=== PATIENT | male | born 1945 | race Caucasian/White ===

== ENCOUNTER 2018-03-03 08:55 | Outpatient (RCR) | payer MEDICARE, OTHER ==
[2018-01-27 15:58] LABS: BASOPHILS # (AUTO) 0.1 10^3/uL (0.0-0.1); BASOPHILS % (AUTO) 2 % (0-10); EOSINOPHILS # (AUTO) 0.1 10^3/uL (0.0-0.3); EOSINOPHILS % (AUTO) 1 % (0-10); HEMATOCRIT 55 % (40-54); LYMPHOCYTES % (AUTO) 17 % (12-44); MEAN CORPUSCULAR HEMOGLOBIN 28 PG (25-34); MEAN CORPUSCULAR HGB CONC 33 G/DL (32-36); MEAN CORPUSCULAR VOLUME 86 FL (80-99); MEAN PLATELET VOLUME 10.6 FL (7.4-10.4); MONOCYTES # (AUTO) 0.5 X 10^3 (0.0-1.0); MONOCYTES % (AUTO) 8 % (0-12); NEUTROPHILS # (AUTO) 4.3 X 10^3 (1.8-7.8); NEUTROPHILS % (AUTO) 73 % (42-75); PLATELET COUNT 173 10^3/uL (130-400); RED BLOOD COUNT 6.48 10^6/uL (4.35-5.85); RED CELL DISTRIBUTION WIDTH 15.2 % (10.0-14.5); WHITE BLOOD COUNT 5.9 10^3/uL (4.3-11.0)
[2018-02-17 13:14] LABS: BASOPHILS # (AUTO) 0.1 10^3/uL (0.0-0.1); BASOPHILS % (AUTO) 1 % (0-10); EOSINOPHILS # (AUTO) 0.1 10^3/uL (0.0-0.3); EOSINOPHILS % (AUTO) 1 % (0-10); HEMATOCRIT 55 % (40-54); HEMOGLOBIN 18.3 G/DL (13.3-17.7); LYMPHOCYTES # (AUTO) 1.3 X 10^3 (1.0-4.0); LYMPHOCYTES % (AUTO) 18 % (12-44); MEAN CORPUSCULAR HEMOGLOBIN 28 PG (25-34); MEAN CORPUSCULAR HGB CONC 33 G/DL (32-36); MEAN CORPUSCULAR VOLUME 85 FL (80-99); MEAN PLATELET VOLUME 10.1 FL (7.4-10.4); MONOCYTES # (AUTO) 0.7 X 10^3 (0.0-1.0); MONOCYTES % (AUTO) 9 % (0-12); NEUTROPHILS # (AUTO) 5.2 X 10^3 (1.8-7.8); NEUTROPHILS % (AUTO) 71 % (42-75); PLATELET COUNT 258 10^3/uL (130-400); RED BLOOD COUNT 6.46 10^6/uL (4.35-5.85); RED CELL DISTRIBUTION WIDTH 14.5 % (10.0-14.5); WHITE BLOOD COUNT 7.3 10^3/uL (4.3-11.0)
[~2018-03-03 08:55] MED LIST: ALLP100T PO; BISO1TAB6 PO; CEPH500C PO; CHOL400T43 GT; FERR27TA PO; HYDR-1231 PO; LISI10TA PO
[2018-03-22 10:32] LABS: BASOPHILS # (AUTO) 0.1 10^3/uL (0.0-0.1); BASOPHILS % (AUTO) 1 % (0-10); EOSINOPHILS % (AUTO) 1 % (0-10); HEMATOCRIT 49 % (40-54); HEMOGLOBIN 16.3 G/DL (13.3-17.7); LYMPHOCYTES % (AUTO) 20 % (12-44); MEAN CORPUSCULAR HEMOGLOBIN 28 PG (25-34); MEAN CORPUSCULAR HGB CONC 33 G/DL (32-36); MEAN CORPUSCULAR VOLUME 85 FL (80-99); MEAN PLATELET VOLUME 9.4 FL (7.4-10.4); MONOCYTES # (AUTO) 0.4 X 10^3 (0.0-1.0); MONOCYTES % (AUTO) 9 % (0-12); NEUTROPHILS # (AUTO) 3.3 X 10^3 (1.8-7.8); NEUTROPHILS % (AUTO) 69 % (42-75); PLATELET COUNT 201 10^3/uL (130-400); RED BLOOD COUNT 5.73 10^6/uL (4.35-5.85); RED CELL DISTRIBUTION WIDTH 16.6 % (10.0-14.5); WHITE BLOOD COUNT 4.8 10^3/uL (4.3-11.0)
[2018-03-22 10:53] LABS: ALBUMIN 4.4 GM/DL (3.2-4.5); CALCIUM 9.8 MG/DL (8.5-10.1); CREATININE SERUM 1.37 MG/DL (0.60-1.30); POTASSIUM 4.4 MMOL/L (3.6-5.0); TOTAL PROTEIN 7.2 GM/DL (6.4-8.2)
== END 2018-03-22 10:22 | disposition home or self-care (01) ==
LOC: ONC 08:55
PROVIDERS: ATTEND Internal Medicine Hematology & Oncology
DX: D75.1 Secondary polycythemia (principal); I10 Essential (primary) hypertension; Q61.3 Polycystic kidney, unspecified; M19.91 Primary osteoarthritis, unspecified site; Z79.899 Other long term (current) drug therapy
CPT/HCPCS: 36415; 80053; 81206; 81270; 82668; 85025; 99195; 99214

== ENCOUNTER 2018-04-03 19:29 | Emergency (ER) | payer MEDICARE, OTHER ==
[~2018-04-03] VITALS: Ht 180.3 cm; Wt 97.5 kg
[2018-04-03 20:05] LABS: BASOPHILS % (AUTO) 1 % (0-10); EOSINOPHILS % (AUTO) 0 % (0-10); HEMATOCRIT 39 % (40-54); HEMOGLOBIN 13.8 G/DL (13.3-17.7); LYMPHOCYTES # (AUTO) 0.4 X 10^3 (1.0-4.0); LYMPHOCYTES % (AUTO) 9 % (12-44); MEAN CORPUSCULAR HEMOGLOBIN 29 PG (25-34); MEAN CORPUSCULAR HGB CONC 35 G/DL (32-36); MEAN CORPUSCULAR VOLUME 84 FL (80-99); MEAN PLATELET VOLUME 9.1 FL (7.4-10.4); MONOCYTES # (AUTO) 0.6 X 10^3 (0.0-1.0); MONOCYTES % (AUTO) 11 % (0-12); NEUTROPHILS % (AUTO) 79 % (42-75); PLATELET COUNT 182 10^3/uL (130-400); RED BLOOD COUNT 4.72 10^6/uL (4.35-5.85); RED CELL DISTRIBUTION WIDTH 17.1 % (10.0-14.5)
--- NOTE | 2018-04-03 20:07 | ED Lower Extremity ---
General Stated Complaint: CHILLS,FEVER,RASH,ACHY Source: patient, family () Exam Limitations: no limitations History of Present Illness Date Seen by Provider: Apr 03, 2018 Time Seen by Provider: 19:50 Initial Comments Patient is a 72-year-old male who presents to the emergency room with complaints of fever, body aches, rash to his bilateral shins, inflamed and swollen right great toe that all started this morning upon waking. He reports that he has history of polycythemia vera and gout. Onset: this morning Pain/Injury Location: right 1st toe Method of Injury: unknown Modifying Factors: Worse With Movement Allergies and Home Medications Allergies Coded Allergies: No Known Drug Allergies (Unverified , 11/29/12) Home Medications Allopurinol 100 Mg Tab, 100 MG PO BIDPC, (Reported) Cephalexin 500 Mg Capsule, 500 MG PO TID Prescribed by: JAC CLARK on 04/03/182103 Cephalexin Monohydrate 500 Mg Capsule, 1 EACH PO TID Prescribed by: NAHOMI GREGORIO on 09/05/142216 Ferrous Sulfate 27 Mg Tablet, 27 MG PO DAILY, (Reported) Hydrocodone Bit/Acetaminophen 1 Tab Tablet, 1 TAB PO Q4H PRN for PAIN Prescribed by: NAHOMI GREGORIO on 09/05/142216 Lisinopril 10 Mg Tablet, 10 MG PO DAILY, (Reported) Patient Home Medication List Home Medication List Reviewed: Yes Review of Systems Constitutional: see HPI, chills, fever, malaise Musculoskeletal: see HPI, joint pain (right great toe pain) Skin: see HPI, rash (to both shins ) All Other Systems Reviewed Negative Unless Noted: Yes Past Yxkacqt-Lvngzw-Deimij Hx Past Med/Social Hx: Reviewed Nursing Past Med/Soc Hx Patient Social History Recent Foreign Travel: No Contact w/Someone Who Travel: No Immunizations Up To Date Tetanus Booster (TDap): Unknown Past Medical History Hypertension Polycystic Kidney Disease Family Medical History Reviewed Nursing Family Hx No Pertinent Family Hx Physical Exam Vital Signs Vital Signs - First Documented 04/03/18 19:48 Temp 101.0 Pulse 85 Resp 18 B/P (MAP) 141/79 (99) Pulse Ox 95 Capillary Refill : Height, Weight, BMI Height: 5'11.00" Weight: 219lbs. 0.0oz. 99.570491qu; BMI Method:Stated General Appearance: WD/WN, no apparent distress HEENT: PERRL/EOMI, normal ENT inspection, TMs normal, pharynx normal Neck: non-tender, full range of motion, supple, normal inspection Cardiovascular: normal peripheral pulses, regular rate, rhythm, no edema, no gallop, no JVD, no murmur Respiratory: chest non-tender, lungs clear, normal breath sounds, no respiratory distress, no accessory muscle use Feet: right foot infection, right foot limited range of motion, right foot soft tissue tenderness, right foot swelling, right foot other (to right great toe. Conserns for cellulits to the toe) Neurologic/Psychiatric: alert, normal mood/affect, oriented x 3 Skin: normal color, warm/dry Progress/Results/Core Measures Results/Orders Lab Results Laboratory Tests Test 04/03/18 19:55 Range/Units White Blood Count 5.0 4.3-11.0 10^3/uL Red Blood Count 4.72 4.35-5.85 10^6/uL Hemoglobin 13.8 13.3-17.7 G/DL Hematocrit 39 L 40-54 % Mean Corpuscular Volume 84 80-99 FL Mean Corpuscular Hemoglobin 29 25-34 PG Mean Corpuscular Hemoglobin Concent 35 32-36 G/DL Red Cell Distribution Width 17.1 H 10.0-14.5 % Platelet Count 182 130-400 10^3/uL Mean Platelet Volume 9.1 7.4-10.4 FL Neutrophils (%) (Auto) 79 H 42-75 % Lymphocytes (%) (Auto) 9 L 12-44 % Monocytes (%) (Auto) 11 0-12 % Eosinophils (%) (Auto) 0 0-10 % Basophils (%) (Auto) 1 0-10 % Neutrophils # (Auto) 4.0 1.8-7.8 X 10^3 Lymphocytes # (Auto) 0.4 L 1.0-4.0 X 10^3 Monocytes # (Auto) 0.6 0.0-1.0 X 10^3 Eosinophils # (Auto) 0.0 0.0-0.3 10^3/uL Basophils # (Auto) 0.0 0.0-0.1 10^3/uL Erythrocyte Sedimentation Rate 17 0-30 MM/HR Prothrombin Time 16.2 H 12.2-14.7 SEC INR Comment 1.3 0.8-1.4 Activated Partial Thromboplast Time 38 H 24-35 SEC Sodium Level 138 135-145 MMOL/L Potassium Level 3.8 3.6-5.0 MMOL/L Chloride Level 105 98-107 MMOL/L Carbon Dioxide Level 22 21-32 MMOL/L Anion Gap 11 5-14 MMOL/L Blood Urea Nitrogen 17 7-18 MG/DL Creatinine 1.42 H 0.60-1.30 MG/DL Estimat Glomerular Filtration Rate 49 BUN/Creatinine Ratio 12 Glucose Level 122 H 70-105 MG/DL Lactic Acid Level 0.94 0.50-2.00 MMOL/L Uric Acid 5.0 2.6-7.2 MG/DL Calcium Level 9.3 8.5-10.1 MG/DL Corrected Calcium 9.4 8.5-10.1 MG/DL Total Bilirubin 0.8 0.1-1.0 MG/DL Aspartate Amino Transf (AST/SGOT) 22 5-34 U/L Alanine Aminotransferase (ALT/SGPT) 19 0-55 U/L Alkaline Phosphatase 61 40-136 U/L C-Reactive Protein High Sensitivity 8.43 H 0.00-0.50 MG/DL Total Protein 6.8 6.4-8.2 GM/DL Albumin 3.9 3.2-4.5 GM/DL Micro Results Microbiology 04/03/18 Influenza Types A,B Antigen (NAVYA) - Final, Complete My Orders Orders - JAC CLARK Influenza A And B Antigens (04/03/18 19:47) Erythrocyte Sedimentation Rate (04/03/18 19:54) Hs C Reactive Protein (04/03/18 19:54) Uric Acid (04/03/18 19:54) Cbc With Automated Diff (04/03/18 19:54) Comprehensive Metabolic Panel (04/03/18 19:54) Blood Culture (04/03/18 19:54) Protime With Inr (04/03/18 19:54) Partial Thromboplastin Time (04/03/18 19:54) Saline Lock/Iv-Start (04/03/18 19:54) Vital Signs Adult Sepsis Patie Q15M (04/03/18 19:54) O2 (04/03/18 19:54) Remove Rings In Anticipation O (04/03/18 19:54) Lactic Acid Analyzer (04/03/18 19:54) Foot, Right, 3 View (04/03/18 19:56) Acetaminophen Tablet (Tylenol Tablet) (04/03/18 21:00) Ceftriaxone For Iv Use (Rocephin For I (04/03/18 21:00) Colchicine Tablet (Colcrys Tablet) (04/03/18 21:15) Colchicine Tablet (Colcrys Tablet) (04/03/18 21:45) Medications Given in ED Current Medications Medications Dose Ordered Sig/Mendez Route Start Time Stop Time Status Last Admin Dose Admin Acetaminophen 1,000 mg ONCE ONCE PO 04/03/18 21:00 04/03/18 21:01 DC 04/03/18 21:10 1,000 MG Ceftriaxone Sodium 1000 mg/ Sodium Chloride 50 ml @ 100 mls/hr ONCE ONCE IV 04/03/18 21:00 04/03/18 21:29 DC 04/03/18 21:13 100 MLS/HR Colchicine 0.6 mg ONCE ONCE PO 04/03/18 21:15 04/03/18 21:16 DC 04/03/18 21:36 0.6 MG Colchicine 0.6 mg ONCE ONCE PO 04/03/18 21:45 04/03/18 21:46 DC 04/03/18 22:10 0.6 MG Vital Signs/I&O 04/03/18 04/03/18 19:48 22:11 Temp 101.0 99.0 Pulse 85 74 Resp 18 18 B/P (MAP) 141/79 (99) 144/68 (93) Pulse Ox 95 98 Progress Progress Note : Time: 21:00 Progress Note I have seen and evaluated the patient. Given his lab values and history I will be treating for cellulitis and gout flare up. I have discussed the case with Dr. Canales and he agrees. The patient agrees with plan of care, plans for follow up, return precautions were given. Voiced no concerns or questions. Diagnostic Imaging Diagonstic Imaging: Xray Plain Films/CT/US/NM/MRI: other (foot) Comments NAME: ANUJACHIDIZENAIDA REC#: [id number] PHYSICIAN: JAC CLARK CC: JAC CLARK; TOMASZ ULLOA MD Page 1 of 1 RADIOLOGY REPORT [facility]IA [email or web address]. [place], [place] CC: JAC CLARK; TOMASZ ULLOA MD Page 1 of 1 RADIOLOGY REPORT NAME: ZENAIDA ASTUDILLO [facility] REC#: [id number] PT STATUS: REG ER : 1945 PHYSICIAN: JAC CLARK ADMIT DATE: 04/03/18/ER Signed Date of Exam: 04/03/18 FOOT, RIGHT, 3 VIEW INDICATION: Redness and swelling of the right great toe 3 views of the right foot shows no fracture, dislocation or other acute bony abnormality. There is advanced degenerative change of the metatarsophalangeal joint and the interphalangeal joint of the great toe. There is hypertrophic spurring and joint space narrowing at these levels. There is small subchondral cyst. No soft tissue calcifications or erosions are seen to specifically suggest gout. There is no evidence of osteomyelitis. IMPRESSION: There are degenerative changes present with no acute abnormality seen. Dictated by: Dictated on workstation # [id number] Dict: 04/03/182032 Trans: 04/03/182049 Interpreted by: TOMASZ ULLOA MD Electronically signed by: TOMASZ ULLOA MD 04/03/182049 Reviewed: Reviewed by Me Departure Impression Primary Impression: Cellulitis of great toe, right Additional Impression: Gout attack Disposition: 01 HOME, SELF-CARE Condition: Stable/Unchanged Departure-Patient Inst. Decision time for Depature: 21:01 Referrals: ORTIZ VALDEZ MD (PCP) Primary Care Physician Patient Instructions: Cellulitis (Skin Infection), Adult (DC) Add. Discharge Instructions: Take medications as directed. Tylenol as directed by the bottle for pain and fever. Follow-up with Dr. Valdez within 1 week for recheck. Call first thing tomorrow morning for an appointment time. Return back to the emergency room for any worsening symptoms or concerns as needed. Scripts Cephalexin (Keflex) 500 Mg Capsule 500 MG PO TID for 7 Days, #21 CAP Prov: JAC CLARK 04/03/18 Copy Copies To 1: ORTIZ VALDEZ MD, TRAVIS Apr 03, 2018 20:07
[2018-04-03 20:17] LABS: INR 1.3 (0.8-1.4); PROTHROMBIN TIME PATIENT 16.2 SEC (12.2-14.7)
[2018-04-03 20:24] LABS: ALBUMIN 3.9 GM/DL (3.2-4.5); BILIRUBIN,TOTAL 0.8 MG/DL (0.1-1.0); CALCIUM 9.3 MG/DL (8.5-10.1); CREATININE SERUM 1.42 MG/DL (0.60-1.30); ERYTHROCYTE SEDIMENTATION RATE 17 MM/HR (0-30); POTASSIUM 3.8 MMOL/L (3.6-5.0); TOTAL PROTEIN 6.8 GM/DL (6.4-8.2)
--- NOTE | 2018-04-03 20:37 | Diagnostic Imaging Report ---
INDICATION: Redness and swelling of the right great toe 3 views of the right foot shows no fracture, dislocation or other acute bony abnormality. There is advanced degenerative change of the metatarsophalangeal joint and the interphalangeal joint of the great toe. There is hypertrophic spurring and joint space narrowing at these levels. There is small subchondral cyst. No soft tissue calcifications or erosions are seen to specifically suggest gout. There is no evidence of osteomyelitis. IMPRESSION: There are degenerative changes present with no acute abnormality seen. Dictated by: Dictated on workstation # [id number]
[2018-04-03] MEDS ORDERED: ACETAMINOPHEN 500 MG TAB (TYLENOL) PO ONE (21:00)
[2018-04-03] MEDS ORDERED: cefTRIAXone FOR IV USE 1,000 MG in NS (IVPB) 50 ML IV ONE (21:00)
[2018-04-03] MEDS ORDERED: CEPH-507 PO (21:04)
[2018-04-03] MEDS ORDERED: COLCHICINE 0.6 MG (COLCRYS) TABLET PO ONE ×2 (21:15→21:45)
[2018-04-03 22:11] VITALS: BP 144/68
--- OUTSIDE RECORDS SUMMARY | 2018-04-03 22:41 | XMS REPORT | Encounter Summary ---
Author Author [facility] Organization [facility] Address Unknown Phone Unavailable Care Team Providers Care Corporate Planning Manager Name Role Phone [employer] DRILLING AND PRODUCTION SUPERINTENDENT- Unavailable Bi Stevens MD Unavailable Marc Valdez MD PCP Reason for Visit * Reason Comments Medication Refill Encounter Details Date Type Department Care Team Description 03/10/[address] [facility] Bi Stevens MD Physicians - Internal [address] [facility] [place] [address] [place] [address] Pav[address] Level 4C [phone] [address] [place] [address] Social History Tobacco Use Types Packs/Day Years Used Date Never Smoker Smokeless Tobacco: Never Used Sex Assigned at Date Recorded Not on file as of this encounter Plan of Treatment Not on fileas of this encounter Visit Diagnoses Not on filein this encounter
--- OUTSIDE RECORDS SUMMARY | 2018-04-03 22:41 | XMS REPORT | Clinical Summary ---
Author Author [facility] Organization [facility] Address Unknown Phone Unavailable Care Team Providers Care Ad Setter Name Role Phone [employer] PEDIATRICIAN MANAGING PARTNER- Unavailable Bi Stevens MD Unavailable Marc Valdez MD PCP Source Comments Some departments are not documenting in the electronic medical record. If you do not see the information that you expected, contact Release of Information in the Health Information Management department at [phone] for further assistance in locating additional records.[facility] Allergies No Known Allergies Current Medications Prescription Sig. Disp. Refills Start End Date Status Date cholecalciferol (Vitamin Take 1,000 Units by mouth Active D3) (VITAMIN D-3) 1,000 daily. units tablet bisoprolol/hydrochlorothi Take 10 mg by mouth Active azide (ZIAC) 10/6.25 mg daily. tablet 10 mg ferrous sulfate (IRON) Take 325 mg by mouth Active 325 mg (65 mg iron) daily. Time release tablet lisinopril (PRINIVIL; Take 1 tablet by mouth 90 tablet 3 09/08/19 Active ZESTRIL) 10 mg tablet daily. 18 sildenafil (REVATIO) 20 Take 40 mg by mouth as Active mg tablet Needed. allopurinol (ZYLOPRIM) Take 2 tablets by mouth 20 tablet 0 10/25/19 Active 100 mg tablet daily. Take with food. 18 ZIAC 10-6.25 mg tablet TAKE 1 TABLET EVERY 90 tablet 4 03/10/20 Active MORNING 18 Active Problems Problem Noted Date Polycystic kidney, unspecified type 10/17/2014 Encounters Date Type Specialty Care Team Description 03/10/2018 Refill Nephrology Bi Stevens MD from Last 3 Months Social History Tobacco Use Types Packs/Day Years Used Date Never Smoker Smokeless Tobacco: Never Used Sex Assigned at Date Recorded Not on file Last Filed Vital Signs Vital Sign Reading Time Taken Blood Pressure 115/69 10/13/2017 3:08 PM CDT Pulse 63 10/13/2017 3:08 PM CDT Temperature 36.5 C (97.7 F) 10/13/2017 3:07 PM CDT Respiratory Rate 16 10/13/2017 3:07 PM CDT Oxygen Saturation - - Inhaled Oxygen - - Concentration Weight 98.2 kg (216 lb 9.6 oz) 10/13/2017 3:07 PM CDT Height 180.3 cm (5' 11") 10/13/2017 3:07 PM CDT Body Mass Index 30.21 10/13/2017 3:07 PM CDT Plan of Treatment Health Maintenance Due Date Last Done Comments HEPATITIS C SCREENING 1945 PHYSICAL (COMPREHENSIVE) 1954 EXAM PERTUSSIS VACCINE 1958 TETANUS VACCINE 1964 COLORECTAL CANCER 1997 SCREENING SHINGLES RECOMBINANT 1997 VACCINE (1 of 2) PNEUMONIA (PCV13/PPSV23) 2012 VACCINES (1 of 2 - PCV13) INFLUENZA VACCINE 01/18/2018 Results Not on filefrom Last 3 Months
--- OUTSIDE RECORDS SUMMARY | 2018-04-03 22:42 | XMS REPORT | Continuity of Care Document ---
Author Author [facility] Organization [facility] Address Unknown Phone Unavailable Allergies Active Description Code Type Severity Reaction Onset Reported/Identified Relationship to Patient Clinical Status Yes No Known Drug Allergies [id number] Drug Allergy Unknown N/A 11/29/2012 Medications There is no data. 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 02/27/2013 MARTIN KOWALSKI, RAZ Cunha Ot 280.9 IRON DEFIC ANEMIA NOS 02/27/2013 MARTIN KOWALSKI, RAZ Cunha Ot 585.3 CHRONIC KIDNEY DISEASE, STAGE III (MODER 02/21/2014 MARTIN KOWALSKI, RAZ Cunha Ot 272.0 PURE HYPERCHOLESTEROLEM 02/21/2014 MARTIN KOWALSKI, RAZ Cunha Ot 401.9 HYPERTENSION NOS 03/26/2014 ORTIZ BARRON MD Ot 211.3 BENIGN NEOPLASM LG BOWEL 03/26/2014 ORTIZ BARRON MD Ot 562.10 DIVERTICULOSIS COLON (W/O MENT OF HEMORR 03/26/2014 ORTIZ BARRON MD Ot V16.0 FAMILY HX-GI MALIGNANCY 03/26/2014 ORTIZ BARRON MD Ot V76.51 SCREEN MAL NEOP-COLON 05/24/2014 MARTIN KOWALSKI, RAZ Cunha Ot 719.45 05/24/2014 RAZ SALAZAR MD Ot 719.46 05/24/2014 RAZ SALAZAR MD Ot 729.5 05/24/2014 RAZ SALAZAR MD Ot 573.8 05/24/2014 RAZ SALAZAR MD Ot 724.02 05/24/2014 RAZ SALAZAR MD Ot 733.20 05/24/2014 MARTIN KOWALSKI, RAZ Cunha Ot 753.12 05/24/2014 Ot 280.9 05/24/2014 Ot 585.3 09/05/2014 Ot 882.0 OPEN WOUND OF HAND 09/05/2014 Ot E000.8 OTHER EXTERNAL CAUSE STATUS 09/05/2014 Ot E849.0 ACCIDENT IN HOME 09/05/2014 Ot E888.0 FALL STRIKING SHARP OBJECT 09/05/2014 Ot E920.8 ACC-CUTTING INSTRUM NEC 09/05/2014 Ot V06.1 DIPHTHERIA- TETANUS-PERTUSSIS, COMBINED [ 12/27/2014 MARTIN KOWALSKI, RAZ Cunha Ot 280.9 01/22/2015 MARTIN KOWALSKI, RAZ Cunha Ot 280.9 05/29/2015 MARTIN KOWALSKI, RAZ Cunha Ot 719.45 05/29/2015 MARTIN KOWALSKI, RAZ Cunha Ot 719.46 05/29/2015 MARTIN KOWALSKI, RAZ Cunha Ot 729.5 05/29/2015 MARTIN KOWALSKI, RAZ Cunha Ot 573.8 05/29/2015 MARTIN KOWALSKI, RAZ Cunha Ot 724.02 05/29/2015 MARTIN KOWALSKI, RAZ Cunha Ot 733.20 05/29/2015 MARTIN KOWALSKI, RAZ Cunha Ot 753.12 05/29/2015 Ot 280.9 05/29/2015 Ot 585.3 05/29/2015 Ot 272.0 05/29/2015 Ot 401.9 05/29/2015 BEATRICE KOWALSKI, ORTIZ Juan Ot V72.84 05/29/2015 MARTIN KOWALSKI, RAZ Cunha Ot 280.9 06/05/2015 MARTIN KOWALSKI, RAZ Cunha Ot D50.9 06/05/2015 RAZ SALAZAR MD Ot D63.8 06/05/2015 MARTIN KOWALSKI, RAZ Cunha Ot D50.9 06/05/2015 RAZ SALAZAR MD Ot D63.8 06/12/2015 RAZ SALAZAR MD Ot D50.9 06/12/2015 MARTIN KOWALSKI, RAZ Cunha Ot D63.8 07/18/2015 RAZ SALAZAR MD Ot D50.9 07/18/2015 RAZ SALAZAR MD Ot D63.8 08/13/2015 RAZ SALAZAR MD Ot D50.9 08/13/2015 RAZ SALAZAR MD Ot D63.8 08/27/2015 RAZ SALAZAR MD Ot D50.9 IRON DEFICIENCY ANEMIA, UNSPECIFIED 08/27/2015 RAZ SALAZAR MD Ot D63.8 ANEMIA IN OTHER CHRONIC DISEASES CLASSIF 11/18/2015 MARTIN KOWALSKI, RAZ Cunha Ot 719.45 JOINT PAIN-PELVIS 11/18/2015 RAZ SALAZAR MD Ot 719.46 JOINT PAIN-L/LEG 11/18/2015 RAZ SALAZAR MD Ot 729.5 PAIN IN LIMB 11/18/2015 MARTIN KOWALSKI, RAZ Cunha Ot 573.8 LIVER DISORDERS NEC 11/18/2015 MARTIN KOWALSKI, RAZ Cunha Ot 724.02 SPINAL STENOSIS, LUMBAR REG, W/OUT NEURO 11/18/2015 MARTIN KOWALSKI, RAZ Cunha Ot 733.20 CYST OF BONE NOS 11/18/2015 MARTIN KOWALSKI, RAZ Cunha Ot 753.12 POLYCYSTIC KIDNEY, UNSPECIFIED TYPE 11/18/2015 Ot 280.9 IRON DEFIC ANEMIA NOS 11/18/2015 Ot 585.3 CHRONIC KIDNEY DISEASE, STAGE III (MODER 01/13/2018 RAZ SALAZAR MD Ot 719.45 JOINT PAIN-PELVIS 01/13/2018 RAZ SALAZAR MD Ot 719.46 JOINT PAIN-L/LEG 01/13/2018 MARTIN KOWALSKI, RAZ Cunha Ot 729.5 PAIN IN LIMB 01/13/2018 RAZ SALAZAR MD Ot 573.8 LIVER DISORDERS NEC 01/13/2018 MARTIN KOWALSKI, RAZ Cunha Ot 724.02 SPINAL STENOSIS, LUMBAR REG, W/OUT NEURO 01/13/2018 MARTIN KOWALSKI, RAZ Cunha Ot 733.20 CYST OF BONE NOS 01/13/2018 MARTIN KOWALSKI, RAZ Cunha Ot 753.12 POLYCYSTIC KIDNEY, UNSPECIFIED TYPE 01/13/2018 Ot 280.9 IRON DEFIC ANEMIA NOS 01/13/2018 Ot 585.3 CHRONIC KIDNEY DISEASE, STAGE III (MODER 01/13/2018 Ot 272.0 PURE HYPERCHOLESTEROLEM 01/13/2018 Ot 401.9 HYPERTENSION NOS 01/13/2018 BEATRICE KOWALSKI, ORTIZ Juan Ot V72.84 EXAM PRE-OPERATIVE NOS 01/13/2018 RAZ SALAZAR MD Ot 280.9 IRON DEFIC ANEMIA NOS 01/13/2018 MARTIN KOWALSKI, RAZ Cunha Ot D50.9 IRON DEFICIENCY ANEMIA, UNSPECIFIED 01/13/2018 RAZ SALAZAR MD Ot D63.8 ANEMIA IN OTHER CHRONIC DISEASES CLASSIF 02/17/2018 RAZ SALAZAR MD Ot 719.45 JOINT PAIN-PELVIS 02/17/2018 RAZ SALAZAR MD Ot 719.46 JOINT PAIN-L/LEG 02/17/2018 MARTIN KOWALSKI, RAZ Cunha Ot 729.5 PAIN IN LIMB 02/17/2018 MARTIN KOWALSKI, RAZ Cunha Ot 573.8 LIVER DISORDERS NEC 02/17/2018 MARTIN KOWALSKI, RAZ Cunha Ot 724.02 SPINAL STENOSIS, LUMBAR REG, W/OUT NEURO 02/17/2018 MARTIN KOWALSKI, RAZ Cunha Ot 733.20 CYST OF BONE NOS 02/17/2018 MARTIN KOWALSKI, RAZ Cunha Ot 753.12 POLYCYSTIC KIDNEY, UNSPECIFIED TYPE 02/17/2018 Ot 280.9 IRON DEFIC ANEMIA NOS 02/17/2018 Ot 585.3 CHRONIC KIDNEY DISEASE, STAGE III (MODER 02/17/2018 Ot 272.0 PURE HYPERCHOLESTEROLEM 02/17/2018 Ot 401.9 HYPERTENSION NOS 02/17/2018 BEATRICE KOWALSKI, ORTIZ Juan Ot V72.84 EXAM PRE-OPERATIVE NOS 02/17/2018 MARTIN KOWALSKI, RAZ Cunha Ot 280.9 IRON DEFIC ANEMIA NOS 02/17/2018 MARTIN KOWALSKI, RAZ Cunha Ot D50.9 IRON DEFICIENCY ANEMIA, UNSPECIFIED 02/17/2018 MARTIN KOWALSKI, RAZ Cunha Ot D63.8 ANEMIA IN OTHER CHRONIC DISEASES CLASSIF 02/17/2018 YANG KOWALSKI, BLU Ot D75.1 SECONDARY POLYCYTHEMIA 02/17/2018 YANG KOWALSKI, BLU Ot I10 ESSENTIAL (PRIMARY) HYPERTENSION 02/17/2018 BLU SORIA MD Ot M19.91 PRIMARY OSTEOARTHRITIS, UNSPECIFIED SITE 02/17/2018 BLU SORIA MD Ot Q61.3 POLYCYSTIC KIDNEY, UNSPECIFIED 02/17/2018 BLU SORIA MD Ot 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 03/22/2018 BLU SORIA MD Ot D75.1 SECONDARY POLYCYTHEMIA 03/22/2018 BLU SORIA MD Ot I10 ESSENTIAL (PRIMARY) HYPERTENSION 03/22/2018 BLU SORIA MD Ot M19.91 PRIMARY OSTEOARTHRITIS, UNSPECIFIED SITE 03/22/2018 BLU SORIA MD Ot Q61.3 POLYCYSTIC KIDNEY, UNSPECIFIED 03/22/2018 BLU SORIA MD Ot 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 03/22/2018 RAZ SALAZAR MD Ot 719.45 JOINT PAIN-PELVIS 03/22/2018 RAZ SALAZAR MD Ot 719.46 JOINT PAIN-L/LEG 03/22/2018 RAZ SALAZAR MD Ot 729.5 PAIN IN LIMB 03/22/2018 RAZ SALAZAR MD Ot 573.8 LIVER DISORDERS NEC 03/22/2018 RAZ SALAZAR MD Ot 724.02 SPINAL STENOSIS, LUMBAR REG, W/OUT NEURO 03/22/2018 MARTIN KOWALSKI, RAZ Cunha Ot 733.20 CYST OF BONE NOS 03/22/2018 RAZ SALAZAR MD Ot 753.12 POLYCYSTIC KIDNEY, UNSPECIFIED TYPE 03/22/2018 Ot 280.9 IRON DEFIC ANEMIA NOS 03/22/2018 Ot 585.3 CHRONIC KIDNEY DISEASE, STAGE III (MODER 03/22/2018 Ot 272.0 PURE HYPERCHOLESTEROLEM 03/22/2018 Ot 401.9 HYPERTENSION NOS 03/22/2018 BEATRICE KOWALSKI, ORTIZ Juan Ot V72.84 EXAM PRE-OPERATIVE NOS 03/22/2018 RAZ SALAZAR MD Ot 280.9 IRON DEFIC ANEMIA NOS 03/22/2018 RAZ SALAZAR MD Ot D50.9 IRON DEFICIENCY ANEMIA, UNSPECIFIED 03/22/2018 RAZ SALAZAR MD Ot D63.8 ANEMIA IN OTHER CHRONIC DISEASES CLASSIF Procedures There is no data. Results Test Result Range Complete blood count (CBC) with automated white blood cell (WBC) differential - 04/03/18 19:55 Blood leukocytes automated count (number/volume) 5.0 10*3/uL 4.3-11.0 Blood erythrocytes automated count (number/volume) 4.72 10*6/uL 4.35-5.85 Venous blood hemoglobin measurement (mass/volume) 13.8 g/dL 13.3-17.7 Blood hematocrit (volume fraction) 39 % 40-54 Automated erythrocyte mean corpuscular volume 84 [foz_us] 80-99 Automated erythrocyte mean corpuscular hemoglobin (mass per erythrocyte) 29 pg 25-34 Automated erythrocyte mean corpuscular hemoglobin concentration measurement ( mass/volume) 35 g/dL 32-36 Automated erythrocyte distribution width ratio 17.1 % 10.0-14.5 Automated blood platelet count (count/volume) 182 10*3/uL 130-400 Automated blood platelet mean volume measurement 9.1 [foz_us] 7.4-10.4 Automated blood neutrophils/100 leukocytes 79 % 42-75 Automated blood lymphocytes/100 leukocytes 9 % 12-44 Blood monocytes/100 leukocytes 11 % 0-12 Automated blood eosinophils/100 leukocytes 0 % 0-10 Automated blood basophils/100 leukocytes 1 % 0-10 Blood neutrophils automated count (number/volume) 4.0 10*3 1.8-7.8 Blood lymphocytes automated count (number/volume) 0.4 10*3 1.0-4.0 Blood monocytes automated count (number/volume) 0.6 10*3 0.0-1.0 Automated eosinophil count 0.0 10*3/uL 0.0-0.3 Automated blood basophil count (count/volume) 0.0 10*3/uL 0.0-0.1 PT panel in platelet poor plasma by coagulation assay - 04/03/18 19:55 Prothrombin time (PT) in platelet poor plasma by coagulation assay 16.2 s 12.2-14.7 INR in platelet poor plasma or blood by coagulation assay 1.3 0.8-1.4 Activated partial thromboplastin time (aPTT) in platelet poor plasma bycoagulation assay - 04/03/18 19:55 Activated partial thromboplastin time (aPTT) in platelet poor plasma bycoagulation assay 38 s 24-35 Blood lactic acid measurement (moles/volume) - 04/03/18 19:55 Blood lactic acid measurement (moles/volume) 0.94 mmol/L 0.50-2.00 Erythrocyte sedimentation rate by westergren method - 04/03/18 19:55 Erythrocyte sedimentation rate by westergren method 17 mm 0-30 Comprehensive metabolic panel - 04/03/18 19:55 Serum or plasma sodium measurement (moles/volume) 138 mmol/L 135-145 Serum or plasma potassium measurement (moles/volume) 3.8 mmol/L 3.6-5.0 Serum or plasma chloride measurement (moles/volume) 105 mmol/L 98-107 Carbon dioxide 22 mmol/L 21-32 Serum or plasma anion gap determination (moles/volume) 11 mmol/L 5-14 Serum or plasma urea nitrogen measurement (mass/volume) 17 mg/dL 7-18 Serum or plasma creatinine measurement (mass/volume) 1.42 mg/dL 0.60-1.30 Serum or plasma urea nitrogen/creatinine mass ratio 12 NRG Serum or plasma creatinine measurement with calculation of estimated glomerular filtration rate 49 NRG Serum or plasma glucose measurement (mass/volume) 122 mg/dL 70-105 Serum or plasma calcium measurement (mass/volume) 9.3 mg/dL 8.5-10.1 Serum or plasma total bilirubin measurement (mass/volume) 0.8 mg/dL 0.1-1.0 Serum or plasma alkaline phosphatase measurement (enzymatic activity/volume) 61 U/L 40-136 Serum or plasma aspartate aminotransferase measurement (enzymatic activity/ volume) 22 U/L 5-34 Serum or plasma alanine aminotransferase measurement (enzymatic activity/volume ) 19 U/L 0-55 Serum or plasma protein measurement (mass/volume) 6.8 g/dL 6.4-8.2 Serum or plasma albumin measurement (mass/volume) 3.9 g/dL 3.2-4.5 CALCIUM CORRECTED 9.4 mg/dL 8.5-10.1 Serum or plasma uric acid measurement (mass/volume) - 04/03/18 19:55 Serum or plasma uric acid measurement (mass/volume) 5.0 mg/dL 2.6-7.2 Serum or plasma C reactive protein measurement (mass/volume) - 04/03/18 19:55 Serum or plasma C reactive protein measurement (mass/volume) 8.43 mg /dL 0.00-0.50 Influenza virus A and B antigen detection - 04/03/18 19:55 FLU RESULT NEGATIVE FOR INFLUENZA A AND B ANTIGENS BY IA NRG Encounters ACCT No. Visit Date/Time Discharge Status Pt. Type Provider Facility Loc./Unit Complaint [id number] 03/22/2018 10:24:00 03/22/2018 23:59:59 CLS Outpatient BLU SORIA MD [facility] ONC [id number] 03/03/2018 08:55:00 03/22/2018 10:22:00 DIS Outpatient BLU SORIA MD [facility] ONC [id number] 08/28/2015 00:09:00 08/28/2015 23:59:59 CLS Preadmit RAZ SALAZAR MD [facility] ANEMIA [id number] 06/12/2015 11:35:00 08/27/2015 00:01:00 DIS Outpatient RAZ SALAZAR MD [facility] ANEMIA [id number] 11/14/2014 12:59:00 11/14/2014 23:59:59 CLS Outpatient RAZ SALAZAR MD [facility] ANEMIA [id number] 03/26/2014 07:35:00 03/26/2014 10:22:00 DIS Outpatient ORTIZ BARRON MD [facility] SCREENING [id number] 03/20/2014 07:19:00 03/20/2014 23:59:59 CLS Outpatient ORTIZ BARRON MD [facility] PREOP SCREENING [id number] 01/24/2014 08:45:00 02/21/2014 00:01:00 DIS Outpatient RAZ SALAZAR MD [facility] ANEMIA [id number] 01/24/2013 08:52:00 02/27/2013 00:01:00 DIS Outpatient RAZ SALAZAR MD [facility] STAGE 3 KIDNEY DISEASE [id number] 02/02/2013 12:15:00 02/02/2013 23:59:59 CLS Outpatient RAZ SALAZAR MD [facility] RAD DDD,LOW BACK PAIN RADIATING TO LT HIP,SOFT TISSUE [id number] 01/23/2013 12:58:00 01/23/2013 23:59:59 CLS Outpatient RAZ SALAZAR MD [facility] RAD L THIGH,KNEE,LEG PAIN[id number] 04/03/2018 20:07:00 Document Registration [id number] 09/05/2014 20:39:00 Document Registration [id number] 05/24/2014 14:29:00 Document Registration [id number] 05/24/2014 14:29:00 Document Registration [id number] 02/22/2014 00:00:00 Document Registration [id number] 02/28/2013 00:00:00 Document Registration
== END 2018-04-03 22:13 | disposition home or self-care (01) ==
LOC: EDUNIT# 19:29 → ER 19:31
DX: L03.031 Cellulitis of right toe (principal); M10.9 Gout, unspecified; I10 Essential (primary) hypertension; Z87.448 Personal history of other diseases of urinary system
CPT/HCPCS: 36415; 73630; 80053; 83605; 84550; 85025; 85610; 85652; 85730; 86141; 87040; 87804; 96365

== ENCOUNTER 2018-05-19 10:42 | Outpatient (RCR) | payer MEDICARE, OTHER ==
[2018-04-21 11:14] LABS: BASOPHILS # (AUTO) 0.1 10^3/uL (0.0-0.1); BASOPHILS % (AUTO) 1 % (0-10); EOSINOPHILS # (AUTO) 0.1 10^3/uL (0.0-0.3); EOSINOPHILS % (AUTO) 1 % (0-10); HEMATOCRIT 42 % (40-54); HEMOGLOBIN 13.4 G/DL (13.3-17.7); LYMPHOCYTES % (AUTO) 19 % (12-44); MEAN CORPUSCULAR HEMOGLOBIN 28 PG (25-34); MEAN CORPUSCULAR HGB CONC 32 G/DL (32-36); MEAN CORPUSCULAR VOLUME 88 FL (80-99); MEAN PLATELET VOLUME 9.3 FL (7.4-10.4); MONOCYTES # (AUTO) 0.4 X 10^3 (0.0-1.0); MONOCYTES % (AUTO) 8 % (0-12); NEUTROPHILS # (AUTO) 3.8 X 10^3 (1.8-7.8); NEUTROPHILS % (AUTO) 71 % (42-75); PLATELET COUNT 320 10^3/uL (130-400); RED BLOOD COUNT 4.77 10^6/uL (4.35-5.85); RED CELL DISTRIBUTION WIDTH 15.9 % (10.0-14.5); WHITE BLOOD COUNT 5.3 10^3/uL (4.3-11.0)
[2018-04-21 11:32] LABS: ALBUMIN 4.3 GM/DL (3.2-4.5); BILIRUBIN,TOTAL 0.6 MG/DL (0.1-1.0); CALCIUM 9.8 MG/DL (8.5-10.1); CREATININE SERUM 1.35 MG/DL (0.60-1.30); POTASSIUM 4.3 MMOL/L (3.6-5.0); TOTAL PROTEIN 7.1 GM/DL (6.4-8.2)
[~2018-05-19 10:42] MED LIST changes: +CEPH-507 PO
[2018-05-19 10:53] LABS: BASOPHILS # (AUTO) 0.1 10^3/uL (0.0-0.1); BASOPHILS % (AUTO) 2 % (0-10); EOSINOPHILS # (AUTO) 0.1 10^3/uL (0.0-0.3); EOSINOPHILS % (AUTO) 2 % (0-10); HEMATOCRIT 42 % (40-54); HEMOGLOBIN 13.1 G/DL (13.3-17.7); LYMPHOCYTES # (AUTO) 0.9 X 10^3 (1.0-4.0); LYMPHOCYTES % (AUTO) 17 % (12-44); MEAN CORPUSCULAR HEMOGLOBIN 27 PG (25-34); MEAN CORPUSCULAR HGB CONC 31 G/DL (32-36); MEAN CORPUSCULAR VOLUME 86 FL (80-99); MEAN PLATELET VOLUME 9.9 FL (7.4-10.4); MONOCYTES # (AUTO) 0.5 X 10^3 (0.0-1.0); MONOCYTES % (AUTO) 9 % (0-12); NEUTROPHILS # (AUTO) 3.8 X 10^3 (1.8-7.8); NEUTROPHILS % (AUTO) 70 % (42-75); PLATELET COUNT 273 10^3/uL (130-400); RED BLOOD COUNT 4.88 10^6/uL (4.35-5.85); WHITE BLOOD COUNT 5.4 10^3/uL (4.3-11.0)
[2018-05-19 11:15] LABS: ALBUMIN 4.1 GM/DL (3.2-4.5); BILIRUBIN,TOTAL 0.8 MG/DL (0.1-1.0); CALCIUM 9.6 MG/DL (8.5-10.1); CREATININE SERUM 1.24 MG/DL (0.60-1.30); POTASSIUM 4.2 MMOL/L (3.6-5.0); TOTAL PROTEIN 6.9 GM/DL (6.4-8.2)
== END 2018-06-20 | disposition home or self-care (01) ==
LOC: ONC 10:42
PROVIDERS: ATTEND Internal Medicine Hematology & Oncology
DX: D75.1 Secondary polycythemia (principal); I10 Essential (primary) hypertension; Q61.3 Polycystic kidney, unspecified; M19.91 Primary osteoarthritis, unspecified site; Z79.899 Other long term (current) drug therapy
CPT/HCPCS: 36415; 80053; 85025; 99195; 99213

== ENCOUNTER 2018-08-18 09:22 | Outpatient (RCR) | payer MEDICARE, OTHER ==
[2018-06-23 10:15] LABS: BASOPHILS # (AUTO) 0.1 10^3/uL (0.0-0.1); BASOPHILS % (AUTO) 1 % (0-10); EOSINOPHILS # (AUTO) 0.1 10^3/uL (0.0-0.3); EOSINOPHILS % (AUTO) 1 % (0-10); HEMATOCRIT 43 % (40-54); HEMOGLOBIN 13.3 G/DL (13.3-17.7); LYMPHOCYTES # (AUTO) 0.9 X 10^3 (1.0-4.0); LYMPHOCYTES % (AUTO) 16 % (12-44); MEAN CORPUSCULAR HEMOGLOBIN 25 PG (25-34); MEAN CORPUSCULAR HGB CONC 31 G/DL (32-36); MEAN CORPUSCULAR VOLUME 80 FL (80-99); MEAN PLATELET VOLUME 10.1 FL (7.4-10.4); MONOCYTES # (AUTO) 0.4 X 10^3 (0.0-1.0); MONOCYTES % (AUTO) 7 % (0-12); NEUTROPHILS # (AUTO) 4.3 X 10^3 (1.8-7.8); NEUTROPHILS % (AUTO) 74 % (42-75); PLATELET COUNT 304 10^3/uL (130-400); RED CELL DISTRIBUTION WIDTH 14.5 % (10.0-14.5); WHITE BLOOD COUNT 5.8 10^3/uL (4.3-11.0)
[2018-06-23 10:31] LABS: ALBUMIN 4.2 GM/DL (3.2-4.5); BILIRUBIN,TOTAL 0.8 MG/DL (0.1-1.0); CALCIUM 9.4 MG/DL (8.5-10.1); CREATININE SERUM 1.45 MG/DL (0.60-1.30); POTASSIUM 4.5 MMOL/L (3.6-5.0)
[~2018-08-18 09:22] MED LIST changes: -ALLO100T PO; -ASPI-586 PO; -BISO1TAB37 PO; -CHOL20002 PO; -LISI10TA2 PO
[2018-08-18 09:48] LABS: BASOPHILS # (AUTO) 0.1 10^3/uL (0.0-0.1); BASOPHILS % (AUTO) 2 % (0-10); EOSINOPHILS # (AUTO) 0.1 10^3/uL (0.0-0.3); EOSINOPHILS % (AUTO) 1 % (0-10); HEMATOCRIT 41 % (40-54); HEMOGLOBIN 12.2 G/DL (13.3-17.7); LYMPHOCYTES # (AUTO) 0.8 X 10^3 (1.0-4.0); LYMPHOCYTES % (AUTO) 17 % (12-44); MEAN CORPUSCULAR HEMOGLOBIN 22 PG (25-34); MEAN CORPUSCULAR HGB CONC 30 G/DL (32-36); MEAN CORPUSCULAR VOLUME 73 FL (80-99); MEAN PLATELET VOLUME 10.1 FL (7.4-10.4); MONOCYTES # (AUTO) 0.4 X 10^3 (0.0-1.0); MONOCYTES % (AUTO) 8 % (0-12); NEUTROPHILS # (AUTO) 3.5 X 10^3 (1.8-7.8); NEUTROPHILS % (AUTO) 73 % (42-75); PLATELET COUNT 304 10^3/uL (130-400); WHITE BLOOD COUNT 4.8 10^3/uL (4.3-11.0)
[2018-08-18 10:05] LABS: ALBUMIN 4.4 GM/DL (3.2-4.5); BILIRUBIN,TOTAL 0.8 MG/DL (0.1-1.0); CALCIUM 9.8 MG/DL (8.5-10.1); CREATININE SERUM 1.47 MG/DL (0.60-1.30); POTASSIUM 4.3 MMOL/L (3.6-5.0); TOTAL PROTEIN 7.1 GM/DL (6.4-8.2)
[2018-08-23] MEDS ORDERED: LISI10TA2 PO (14:40)
[2018-08-23] MEDS ORDERED: BISO1TAB37 PO (14:40)
[2018-08-23] MEDS ORDERED: ASPI-586 PO (14:40)
[2018-08-23] MEDS ORDERED: ALLO100T PO (14:40)
[2018-08-23] MEDS ORDERED: CHOL20002 PO (14:40)
== END 2018-09-21 | disposition home or self-care (01) ==
LOC: ONC 09:22
PROVIDERS: ATTEND Internal Medicine Hematology & Oncology
DX: D75.1 Secondary polycythemia (principal); I10 Essential (primary) hypertension; Q61.3 Polycystic kidney, unspecified; M19.91 Primary osteoarthritis, unspecified site; Z79.899 Other long term (current) drug therapy
CPT/HCPCS: 36415; 80053; 85025; 99195; 99213

== ENCOUNTER → 2018-08-18 | Outpatient (CLI) | payer MEDICARE, OTHER ==
[~2018-08-18] MED LIST changes: +ALLO100T PO; +ASPI-586 PO; +BISO1TAB37 PO; +CHOL20002 PO; +LISI10TA2 PO
== END ==
LOC: LAB 09:34
PROVIDERS: ATTEND Internal Medicine
DX: Z12.5 Encounter for screening for malignant neoplasm of prostate (principal)
CPT/HCPCS: 36415; 84153

== ENCOUNTER 2018-08-23 14:44 | Outpatient (CLI) | payer MEDICARE, OTHER ==
[~2018-08-23] VITALS: Ht 180.3 cm; Wt 97.5 kg
[~2018-08-23 14:44] MED LIST changes: +ALLO100T PO; +ASPI-586 PO; +BISO1TAB37 PO; +CHOL20002 PO; +LISI10TA2 PO
== END 2018-08-23 14:55 | disposition home or self-care (01) ==
LOC: PREOP 14:44
PROVIDERS: ATTEND Internal Medicine
DX: Z01.818 Encounter for other preprocedural examination (principal)

== ENCOUNTER 2018-08-25 07:55 | Day surgery (SDC) | payer MEDICARE, OTHER ==
[2018-08-25] MEDS ORDERED: D5 LR IV SOLUTION 1,000 ML IV ONE (08:02)
[2018-08-25] MEDS ORDERED: D5 LR IV SOLUTION 1,000 ML IV STA (08:03)
[2018-08-25] MEDS ORDERED: fentaNYL INJECTION 100 MCG/2 ML AMP IVP ONE (08:15)
[2018-08-25] MEDS ORDERED: MIDAZOLAM 2 MG/2 ML (VERSED) VIAL ONE (08:15)
[2018-08-25] MEDS ORDERED: fentaNYL INJECTION 100 MCG/2 ML AMP ONE (08:15)
[2018-08-25] MEDS ORDERED: MIDAZOLAM 2 MG/2 ML (VERSED) VIAL IVP ONE (08:15)
[2018-08-25] MEDS ORDERED: LIDOCAINE JELLY 2% 6 ML SYRINGE MM PRN (08:15)
[2018-08-25] MEDS ORDERED: LIDOCAINE JELLY 2% 6 ML SYRINGE ONE (08:16)
[2018-08-25 08:22] VITALS: BP 132/77
--- NOTE | 2018-08-25 08:31 | Pre-Op Note & Conscious Sedat ---
Pre-Operative Progress Note H&P Reviewed The H&P was reviewed, patient examined and no changes noted. Date H&P Reviewed: Aug 25, 2018 Time H&P Reviewed: 08:31 Conscious Sedation Pre-Proced ASA Score 2 For ASA 3 and 4: Consider anesthesia and medical clearance. Also, for patients with a history of failed moderate sedation consider anesthesia. Airway Lungs Heart ASA score ASA 1: a normal healthy patient ASA 2: a patient with a mild systemic disease (mid diabetes, controlled hypertension, obesity ASA 3: a patient with a severe systemic disease that limits activity (angina , COPD, prior Myocardial infarction) ASA 4: a patient with an incapacitating disease that is a constant threat to life (CHF, renal failure) ASA 5: a moribund patient not expected to survive 24 hrs. (ruptured aneurysm) ASA 6: a declared brain- patient whose organs are being harvested. For emergent operations, add the letter E after the classification Mallampati Classification Grade 2 Sedation Plan Analgesia, Amnesia, Plan communicated to team members, Discussed options with patient/fam, Discussed risks with patient/fam The patient is an appropriate candidate to undergo the planned procedure, sedation, and anesthesia. The patient immediately re-assessed prior to indication. ORTIZ BARRON MD Aug 25, 2018 08:31
[2018-08-25 09:35] VITALS: BP 98/56
[2018-08-25 10:00] VITALS: BP 134/74
[2018-08-25 10:27] VITALS: BP 134/74
--- NOTE | 2018-08-25 15:32 | OPERATIVE REPORT ---
DATE OF SERVICE: COLONOSCOPY SUMMARY PRIMARY CARE PROVIDER: Dr. Mayo Cruz. INDICATION FOR THE PROCEDURE: Surveillance colonoscopy, history of past colon polyps. The patient was placed in the left lateral decubitus position. Prior to undergoing colonoscopy, digital rectal evaluation was performed. Anal sphincter tone was normal and the perianal reflexes were intact. The prostate was anodular and normal in size to digital inspection. No abnormalities. No additional inspection of anal canal or distal rectal vault. The colonoscope was then inserted into the rectum and under direct visualization advanced to the cecum. The cecum was identified by identification of the ileocecal valve and cecal strap. Photographic documentation was obtained. Careful inspection was made as the colonoscope was withdrawn. The patient tolerated the procedure well. FINDINGS: There was no evidence for external hemorrhoids. There was a small complex of grade I internal hemorrhoid noted. The rectum was unremarkable. Several small sigmoid diverticulum were present with haustral hypertrophy, but no evidence for diverticulitis. No other sigmoid colonic abnormalities were appreciated. The descending colon and splenic flexure were unremarkable. Present in the proximal transverse colon were 2 adjacent sessile polyps, larger one was 5 mm in size, smaller one 3. Both were biopsied and ablated with no noted blood loss with the hot forceps. The remainder of the transverse colon, hepatic flexure, ascending colon and cecum were unremarkable. ASSESSMENT: 1. Mild diverticular disease confined to the sigmoid colon was present without evidence for diverticulitis. 2. Two small adenomatous adjacent polyps were noted in the proximal transverse colon. They were biopsied and ablated with no subsequent blood loss. We will await histopathology report, will likely recommend a 3 to 5 year screening interval. 3. One small group of grade I internal hemorrhoids was noted. The prostate was unremarkable on digital inspection. Job ID: [id number] DocumentID: [id number] Dictated Date: 08/25/2018 09:27:56 Table Inspector Date: 08/25/2018 15:31:40 Dictated By: ORTIZ BARRON MD [facility]
== END 2018-08-25 10:20 | disposition home or self-care (01) ==
LOC: ENDO 07:55
PROVIDERS: ATTEND Internal Medicine
DX: Z12.11 Encounter for screening for malignant neoplasm of colon (principal); D12.3 Benign neoplasm of transverse colon; K57.30 Diverticulosis of large intestine without perforation or abscess without bleeding; K64.0 First degree hemorrhoids; D45 Polycythemia vera; Z79.899 Other long term (current) drug therapy

== ENCOUNTER 2018-12-15 08:51 | Outpatient (RCR) | payer MEDICARE, OTHER ==
[2018-10-20 09:07] LABS: BASOPHILS # (AUTO) 0.1 10^3/uL (0.0-0.1); BASOPHILS % (AUTO) 2 % (0-10); EOSINOPHILS # (AUTO) 0.1 10^3/uL (0.0-0.3); EOSINOPHILS % (AUTO) 2 % (0-10); HEMATOCRIT 43 % (40-54); HEMOGLOBIN 12.8 G/DL (13.3-17.7); LYMPHOCYTES # (AUTO) 0.8 X 10^3 (1.0-4.0); LYMPHOCYTES % (AUTO) 16 % (12-44); MEAN CORPUSCULAR HEMOGLOBIN 21 PG (25-34); MEAN CORPUSCULAR HGB CONC 30 G/DL (32-36); MEAN CORPUSCULAR VOLUME 69 FL (80-99); MEAN PLATELET VOLUME 10.1 FL (7.4-10.4); MONOCYTES # (AUTO) 0.4 X 10^3 (0.0-1.0); MONOCYTES % (AUTO) 8 % (0-12); NEUTROPHILS # (AUTO) 3.5 X 10^3 (1.8-7.8); NEUTROPHILS % (AUTO) 73 % (42-75); PLATELET COUNT 290 10^3/uL (130-400); RED CELL DISTRIBUTION WIDTH 18.7 % (10.0-14.5); WHITE BLOOD COUNT 4.8 10^3/uL (4.3-11.0)
[2018-10-20 09:32] LABS: ALBUMIN 4.2 GM/DL (3.2-4.5); BILIRUBIN,TOTAL 0.6 MG/DL (0.1-1.0); CALCIUM 9.4 MG/DL (8.5-10.1); CREATININE SERUM 1.53 MG/DL (0.60-1.30); POTASSIUM 4.6 MMOL/L (3.6-5.0); TOTAL PROTEIN 6.9 GM/DL (6.4-8.2)
[2018-12-15 09:04] LABS: BASOPHILS # (AUTO) 0.1 10^3/uL (0.0-0.1); BASOPHILS % (AUTO) 1 % (0-10); EOSINOPHILS # (AUTO) 0.1 10^3/uL (0.0-0.3); EOSINOPHILS % (AUTO) 2 % (0-10); HEMATOCRIT 42 % (40-54); HEMOGLOBIN 12.7 G/DL (13.3-17.7); LYMPHOCYTES % (AUTO) 20 % (12-44); MEAN CORPUSCULAR HEMOGLOBIN 20 PG (25-34); MEAN CORPUSCULAR HGB CONC 30 G/DL (32-36); MEAN CORPUSCULAR VOLUME 67 FL (80-99); MEAN PLATELET VOLUME 9.6 FL (7.4-10.4); MONOCYTES # (AUTO) 0.4 X 10^3 (0.0-1.0); MONOCYTES % (AUTO) 8 % (0-12); NEUTROPHILS # (AUTO) 3.6 X 10^3 (1.8-7.8); NEUTROPHILS % (AUTO) 70 % (42-75); PLATELET COUNT 319 10^3/uL (130-400); RED CELL DISTRIBUTION WIDTH 19.3 % (10.0-14.5); WHITE BLOOD COUNT 5.2 10^3/uL (4.3-11.0)
[2018-12-15 09:26] LABS: ALBUMIN 4.3 GM/DL (3.2-4.5); BILIRUBIN,TOTAL 0.5 MG/DL (0.1-1.0); CALCIUM 9.2 MG/DL (8.5-10.1); CREATININE SERUM 1.53 MG/DL (0.60-1.30); POTASSIUM 4.2 MMOL/L (3.6-5.0); TOTAL PROTEIN 6.9 GM/DL (6.4-8.2)
== END 2019-01-18 | disposition home or self-care (01) ==
LOC: ONC 08:51
PROVIDERS: ATTEND Internal Medicine Hematology & Oncology
DX: D75.1 Secondary polycythemia (principal); I10 Essential (primary) hypertension; Q61.3 Polycystic kidney, unspecified; M19.91 Primary osteoarthritis, unspecified site; Z79.899 Other long term (current) drug therapy
CPT/HCPCS: 36415; 80053; 85025; 99213

== ENCOUNTER 2019-05-15 08:10 | Outpatient (RCR) | payer MEDICARE, OTHER ==
[2019-02-16 09:04] LABS: BASOPHILS % (AUTO) 0 % (0-10); EOSINOPHILS # (AUTO) 0.1 10^3/uL (0.0-0.3); EOSINOPHILS % (AUTO) 2 % (0-10); HEMATOCRIT 45 % (40-54); HEMOGLOBIN 13.5 G/DL (13.3-17.7); LYMPHOCYTES # (AUTO) 0.8 X 10^3 (1.0-4.0); LYMPHOCYTES % (AUTO) 17 % (12-44); MEAN CORPUSCULAR HEMOGLOBIN 21 PG (25-34); MEAN CORPUSCULAR HGB CONC 30 G/DL (32-36); MEAN CORPUSCULAR VOLUME 68 FL (80-99); MEAN PLATELET VOLUME 10.1 FL (7.4-10.4); MONOCYTES # (AUTO) 0.4 X 10^3 (0.0-1.0); MONOCYTES % (AUTO) 9 % (0-12); NEUTROPHILS # (AUTO) 3.7 X 10^3 (1.8-7.8); NEUTROPHILS % (AUTO) 73 % (42-75); PLATELET COUNT 304 10^3/uL (130-400); RED CELL DISTRIBUTION WIDTH 19.6 % (10.0-14.5); WHITE BLOOD COUNT 5.1 10^3/uL (4.3-11.0)
[2019-02-16 09:28] LABS: ALBUMIN 4.2 GM/DL (3.2-4.5); BILIRUBIN,TOTAL 0.6 MG/DL (0.1-1.0); CALCIUM 9.3 MG/DL (8.5-10.1); CREATININE SERUM 1.54 MG/DL (0.60-1.30); POTASSIUM 4.3 MMOL/L (3.6-5.0); TOTAL PROTEIN 6.9 GM/DL (6.4-8.2)
[2019-03-16 08:57] LABS: BASOPHILS # (AUTO) 0.1 10^3/uL (0.0-0.1); BASOPHILS % (AUTO) 1 % (0-10); EOSINOPHILS # (AUTO) 0.1 10^3/uL (0.0-0.3); EOSINOPHILS % (AUTO) 2 % (0-10); HEMATOCRIT 43 % (40-54); HEMOGLOBIN 13.1 G/DL (13.3-17.7); LYMPHOCYTES # (AUTO) 1.1 X 10^3 (1.0-4.0); LYMPHOCYTES % (AUTO) 22 % (12-44); MEAN CORPUSCULAR HEMOGLOBIN 21 PG (25-34); MEAN CORPUSCULAR HGB CONC 30 G/DL (32-36); MEAN CORPUSCULAR VOLUME 69 FL (80-99); MEAN PLATELET VOLUME 10.2 FL (7.4-10.4); MONOCYTES # (AUTO) 0.4 X 10^3 (0.0-1.0); MONOCYTES % (AUTO) 8 % (0-12); NEUTROPHILS # (AUTO) 3.3 X 10^3 (1.8-7.8); NEUTROPHILS % (AUTO) 68 % (42-75); PLATELET COUNT 281 10^3/uL (130-400); RED CELL DISTRIBUTION WIDTH 18.9 % (10.0-14.5); WHITE BLOOD COUNT 4.9 10^3/uL (4.3-11.0)
[2019-03-16 09:26] LABS: ALBUMIN 4.3 GM/DL (3.2-4.5); BILIRUBIN,TOTAL 0.6 MG/DL (0.1-1.0); CALCIUM 9.4 MG/DL (8.5-10.1); CREATININE SERUM 1.51 MG/DL (0.60-1.30); POTASSIUM 3.9 MMOL/L (3.6-5.0); TOTAL PROTEIN 6.9 GM/DL (6.4-8.2)
[2019-04-20 11:34] LABS: BASOPHILS # (AUTO) 0.1 10^3/uL (0.0-0.1); BASOPHILS % (AUTO) 2 % (0-10); EOSINOPHILS # (AUTO) 0.1 10^3/uL (0.0-0.3); EOSINOPHILS % (AUTO) 2 % (0-10); HEMATOCRIT 45 % (40-54); HEMOGLOBIN 13.5 G/DL (13.3-17.7); LYMPHOCYTES # (AUTO) 1.1 X 10^3 (1.0-4.0); LYMPHOCYTES % (AUTO) 20 % (12-44); MEAN CORPUSCULAR HGB CONC 30 G/DL (32-36); MEAN CORPUSCULAR VOLUME 68 FL (80-99); MEAN PLATELET VOLUME 10.1 FL (7.4-10.4); MONOCYTES # (AUTO) 0.4 X 10^3 (0.0-1.0); MONOCYTES % (AUTO) 8 % (0-12); NEUTROPHILS # (AUTO) 3.8 X 10^3 (1.8-7.8); NEUTROPHILS % (AUTO) 69 % (42-75); PLATELET COUNT 314 10^3/uL (130-400); RED CELL DISTRIBUTION WIDTH 19.1 % (10.0-14.5); WHITE BLOOD COUNT 5.5 10^3/uL (4.3-11.0)
[2019-04-20 11:35] LABS: MEAN CORPUSCULAR HEMOGLOBIN 20 PG (25-34)
[2019-04-20 12:04] LABS: ALBUMIN 4.3 GM/DL (3.2-4.5); BILIRUBIN,TOTAL 0.7 MG/DL (0.1-1.0); CALCIUM 9.5 MG/DL (8.5-10.1); CREATININE SERUM 1.55 MG/DL (0.60-1.30); POTASSIUM 4.7 MMOL/L (3.6-5.0); TOTAL PROTEIN 7.1 GM/DL (6.4-8.2)
[2019-05-15 08:25] LABS: BASOPHILS # (AUTO) 0.1 10^3/uL (0.0-0.1); BASOPHILS % (AUTO) 2 % (0-10); EOSINOPHILS # (AUTO) 0.1 10^3/uL (0.0-0.3); EOSINOPHILS % (AUTO) 1 % (0-10); HEMATOCRIT 45 % (40-54); HEMOGLOBIN 13.5 G/DL (13.3-17.7); LYMPHOCYTES # (AUTO) 0.6 X 10^3 (1.0-4.0); LYMPHOCYTES % (AUTO) 13 % (12-44); MEAN CORPUSCULAR HEMOGLOBIN 20 PG (25-34); MEAN CORPUSCULAR HGB CONC 30 G/DL (32-36); MEAN CORPUSCULAR VOLUME 67 FL (80-99); MEAN PLATELET VOLUME 9.5 FL (7.4-10.4); MONOCYTES # (AUTO) 0.4 X 10^3 (0.0-1.0); MONOCYTES % (AUTO) 7 % (0-12); NEUTROPHILS # (AUTO) 3.8 X 10^3 (1.8-7.8); NEUTROPHILS % (AUTO) 77 % (42-75); PLATELET COUNT 290 10^3/uL (130-400); RED CELL DISTRIBUTION WIDTH 19.5 % (10.0-14.5); WHITE BLOOD COUNT 4.9 10^3/uL (4.3-11.0)
[2019-05-15 08:46] LABS: ALBUMIN 4.2 GM/DL (3.2-4.5); BILIRUBIN,TOTAL 0.6 MG/DL (0.1-1.0); CREATININE SERUM 1.69 MG/DL (0.60-1.30); POTASSIUM 4.3 MMOL/L (3.6-5.0); TOTAL PROTEIN 6.8 GM/DL (6.4-8.2)
== END 2019-05-17 | disposition home or self-care (01) ==
LOC: ONC 08:10
PROVIDERS: ATTEND Internal Medicine Hematology & Oncology
DX: D75.1 Secondary polycythemia (principal); I10 Essential (primary) hypertension; Q61.3 Polycystic kidney, unspecified; M19.91 Primary osteoarthritis, unspecified site; Z79.899 Other long term (current) drug therapy
CPT/HCPCS: 36415; 80053; 85025; 99213

== ENCOUNTER 2019-07-12 08:51 | Outpatient (RCR) | payer MEDICARE, OTHER ==
[2019-05-23 08:38] LABS: BASOPHILS # (AUTO) 0.1 10^3/uL (0.0-0.1); BASOPHILS % (AUTO) 2 % (0-10); EOSINOPHILS # (AUTO) 0.2 10^3/uL (0.0-0.3); EOSINOPHILS % (AUTO) 3 % (0-10); HEMATOCRIT 44 % (40-54); HEMOGLOBIN 13.5 G/DL (13.3-17.7); LYMPHOCYTES # (AUTO) 1.6 X 10^3 (1.0-4.0); LYMPHOCYTES % (AUTO) 29 % (12-44); MEAN CORPUSCULAR HEMOGLOBIN 21 PG (25-34); MEAN CORPUSCULAR HGB CONC 30 G/DL (32-36); MEAN CORPUSCULAR VOLUME 69 FL (80-99); MEAN PLATELET VOLUME 10.6 FL (7.4-10.4); MONOCYTES # (AUTO) 0.4 X 10^3 (0.0-1.0); MONOCYTES % (AUTO) 8 % (0-12); NEUTROPHILS # (AUTO) 3.1 X 10^3 (1.8-7.8); NEUTROPHILS % (AUTO) 58 % (42-75); PLATELET COUNT 315 10^3/uL (130-400); RED CELL DISTRIBUTION WIDTH 19.5 % (10.0-14.5); WHITE BLOOD COUNT 5.4 10^3/uL (4.3-11.0)
[2019-05-23 09:03] LABS: CALCIUM 9.1 MG/DL (8.5-10.1); CREATININE SERUM 1.39 MG/DL (0.60-1.30); POTASSIUM 4.2 MMOL/L (3.6-5.0)
[2019-05-23 09:32] LABS: SMEAR SCAN COMMENT YES
[2019-05-30 09:10] LABS: BASOPHILS # (AUTO) 0.1 10^3/uL (0.0-0.1); BASOPHILS % (AUTO) 2 % (0-10); EOSINOPHILS # (AUTO) 0.1 10^3/uL (0.0-0.3); EOSINOPHILS % (AUTO) 3 % (0-10); HEMATOCRIT 43 % (40-54); HEMOGLOBIN 13.2 G/DL (13.3-17.7); LYMPHOCYTES % (AUTO) 24 % (12-44); MEAN CORPUSCULAR HEMOGLOBIN 21 PG (25-34); MEAN CORPUSCULAR HGB CONC 31 G/DL (32-36); MEAN CORPUSCULAR VOLUME 68 FL (80-99); MEAN PLATELET VOLUME 10.5 FL (7.4-10.4); MONOCYTES # (AUTO) 0.4 X 10^3 (0.0-1.0); MONOCYTES % (AUTO) 10 % (0-12); NEUTROPHILS # (AUTO) 2.6 X 10^3 (1.8-7.8); NEUTROPHILS % (AUTO) 62 % (42-75); PLATELET COUNT 298 10^3/uL (130-400); RED CELL DISTRIBUTION WIDTH 20.2 % (10.0-14.5); WHITE BLOOD COUNT 4.2 10^3/uL (4.3-11.0)
[2019-05-30 09:25] LABS: CREATININE SERUM 1.61 MG/DL (0.60-1.30); POTASSIUM 4.3 MMOL/L (3.6-5.0)
[2019-06-06 11:23] LABS: BASOPHILS # (AUTO) 0.1 10^3/uL (0.0-0.1); BASOPHILS % (AUTO) 2 % (0-10); EOSINOPHILS # (AUTO) 0.1 10^3/uL (0.0-0.3); EOSINOPHILS % (AUTO) 1 % (0-10); HEMATOCRIT 44 % (40-54); HEMOGLOBIN 13.4 G/DL (13.3-17.7); LYMPHOCYTES % (AUTO) 21 % (12-44); MEAN CORPUSCULAR HEMOGLOBIN 21 PG (25-34); MEAN CORPUSCULAR HGB CONC 31 G/DL (32-36); MEAN CORPUSCULAR VOLUME 70 FL (80-99); MEAN PLATELET VOLUME 10.3 FL (7.4-10.4); MONOCYTES # (AUTO) 0.4 X 10^3 (0.0-1.0); MONOCYTES % (AUTO) 8 % (0-12); NEUTROPHILS # (AUTO) 3.3 X 10^3 (1.8-7.8); NEUTROPHILS % (AUTO) 68 % (42-75); PLATELET COUNT 272 10^3/uL (130-400); RED CELL DISTRIBUTION WIDTH 20.8 % (10.0-14.5); WHITE BLOOD COUNT 4.9 10^3/uL (4.3-11.0)
[2019-06-06 11:44] LABS: CALCIUM 9.3 MG/DL (8.5-10.1); CREATININE SERUM 1.52 MG/DL (0.60-1.30); POTASSIUM 4.4 MMOL/L (3.6-5.0)
[2019-06-14 09:33] LABS: BASOPHILS # (AUTO) 0.1 10^3/uL (0.0-0.1); BASOPHILS % (AUTO) 2 % (0-10); EOSINOPHILS # (AUTO) 0.1 10^3/uL (0.0-0.3); EOSINOPHILS % (AUTO) 2 % (0-10); HEMATOCRIT 43 % (40-54); HEMOGLOBIN 13.4 G/DL (13.3-17.7); LYMPHOCYTES # (AUTO) 1.1 X 10^3 (1.0-4.0); LYMPHOCYTES % (AUTO) 25 % (12-44); MEAN CORPUSCULAR HEMOGLOBIN 22 PG (25-34); MEAN CORPUSCULAR HGB CONC 31 G/DL (32-36); MEAN CORPUSCULAR VOLUME 71 FL (80-99); MEAN PLATELET VOLUME 9.9 FL (7.4-10.4); MONOCYTES # (AUTO) 0.4 X 10^3 (0.0-1.0); MONOCYTES % (AUTO) 9 % (0-12); NEUTROPHILS # (AUTO) 2.7 X 10^3 (1.8-7.8); NEUTROPHILS % (AUTO) 63 % (42-75); PLATELET COUNT 249 10^3/uL (130-400); RED CELL DISTRIBUTION WIDTH 21.9 % (10.0-14.5); WHITE BLOOD COUNT 4.3 10^3/uL (4.3-11.0)
[2019-06-14 09:55] LABS: ALBUMIN 4.1 GM/DL (3.2-4.5); BILIRUBIN,TOTAL 0.5 MG/DL (0.1-1.0); CALCIUM 8.9 MG/DL (8.5-10.1); CREATININE SERUM 1.73 MG/DL (0.60-1.30); POTASSIUM 4.2 MMOL/L (3.6-5.0); TOTAL PROTEIN 6.7 GM/DL (6.4-8.2)
[2019-07-12 09:45] LABS: BASOPHILS % (AUTO) 1 % (0-10); EOSINOPHILS # (AUTO) 0.1 10^3/uL (0.0-0.3); EOSINOPHILS % (AUTO) 2 % (0-10); HEMATOCRIT 44 % (40-54); HEMOGLOBIN 13.7 G/DL (13.3-17.7); LYMPHOCYTES % (AUTO) 23 % (12-44); MEAN CORPUSCULAR HEMOGLOBIN 23 PG (25-34); MEAN CORPUSCULAR HGB CONC 31 G/DL (32-36); MEAN CORPUSCULAR VOLUME 73 FL (80-99); MEAN PLATELET VOLUME 10.3 FL (7.4-10.4); MONOCYTES # (AUTO) 0.4 X 10^3 (0.0-1.0); MONOCYTES % (AUTO) 8 % (0-12); NEUTROPHILS # (AUTO) 3.1 X 10^3 (1.8-7.8); NEUTROPHILS % (AUTO) 66 % (42-75); PLATELET COUNT 237 10^3/uL (130-400); RED CELL DISTRIBUTION WIDTH 24.4 % (10.0-14.5); WHITE BLOOD COUNT 4.6 10^3/uL (4.3-11.0)
[2019-07-12 10:09] LABS: ALBUMIN 4.2 GM/DL (3.2-4.5); BILIRUBIN,TOTAL 0.6 MG/DL (0.1-1.0); CALCIUM 9.5 MG/DL (8.5-10.1); CREATININE SERUM 1.52 MG/DL (0.60-1.30); POTASSIUM 4.2 MMOL/L (3.6-5.0); TOTAL PROTEIN 6.9 GM/DL (6.4-8.2)
== END 2019-08-21 | disposition home or self-care (01) ==
LOC: ONC 08:51
PROVIDERS: ATTEND Internal Medicine Hematology & Oncology
DX: D45 Polycythemia vera (principal); I10 Essential (primary) hypertension; Q61.3 Polycystic kidney, unspecified; M19.91 Primary osteoarthritis, unspecified site; Z79.899 Other long term (current) drug therapy
CPT/HCPCS: 80048; 80053; 85025; 99213

== ENCOUNTER 2019-10-24 08:33 | Outpatient (RCR) | payer MEDICARE, OTHER ==
[2019-10-24 08:45] LABS: BASOPHILS # (AUTO) 0.1 10^3/uL (0.0-0.1); BASOPHILS % (AUTO) 2 % (0-10); EOSINOPHILS # (AUTO) 0.1 10^3/uL (0.0-0.3); EOSINOPHILS % (AUTO) 2 % (0-10); HEMATOCRIT 36 % (40-54); HEMOGLOBIN 11.5 G/DL (13.3-17.7); LYMPHOCYTES % (AUTO) 22 % (12-44); MEAN CORPUSCULAR HEMOGLOBIN 28 PG (25-34); MEAN CORPUSCULAR HGB CONC 32 G/DL (32-36); MEAN CORPUSCULAR VOLUME 88 FL (80-99); MEAN PLATELET VOLUME 9.8 FL (7.4-10.4); MONOCYTES # (AUTO) 0.4 X 10^3 (0.0-1.0); MONOCYTES % (AUTO) 9 % (0-12); NEUTROPHILS # (AUTO) 3.1 X 10^3 (1.8-7.8); NEUTROPHILS % (AUTO) 66 % (42-75); PLATELET COUNT 281 10^3/uL (130-400); WHITE BLOOD COUNT 4.6 10^3/uL (4.3-11.0)
== END 2019-12-19 14:05 | disposition home or self-care (01) ==
LOC: ONC 08:33
PROVIDERS: ATTEND Internal Medicine Hematology & Oncology
DX: D45 Polycythemia vera (principal); I10 Essential (primary) hypertension; Q61.3 Polycystic kidney, unspecified; M19.91 Primary osteoarthritis, unspecified site; Z79.899 Other long term (current) drug therapy
CPT/HCPCS: 85025; 99213

== ENCOUNTER → 2019-10-24 | Outpatient (CLI) | payer MEDICARE, OTHER | LOC: LAB 08:37 | PROVIDERS: ATTEND Internal Medicine | DX: Z12.5 Encounter for screening for malignant neoplasm of prostate (principal) | CPT/HCPCS: 36415; 84153 ==

== ENCOUNTER 2020-01-15 17:34 | Emergency (ER) | payer MEDICARE, OTHER ==
[~2020-01-15] VITALS: Ht 180.3 cm; Wt 95.2 kg
[2020-01-15 18:22] LABS: BASOPHILS # (AUTO) 0.1 10^3/uL (0.0-0.1); BASOPHILS % (AUTO) 2 % (0-10); EOSINOPHILS % (AUTO) 0 % (0-10); HEMATOCRIT 23 % (40-54); LYMPHOCYTES # (AUTO) 1.2 X 10^3 (1.0-4.0); LYMPHOCYTES % (AUTO) 26 % (12-44); MEAN CORPUSCULAR HEMOGLOBIN 24 PG (25-34); MEAN CORPUSCULAR HGB CONC 30 G/DL (32-36); MEAN CORPUSCULAR VOLUME 80 FL (80-99); MEAN PLATELET VOLUME 10.8 FL (7.4-10.4); MONOCYTES # (AUTO) 0.4 X 10^3 (0.0-1.0); MONOCYTES % (AUTO) 8 % (0-12); NEUTROPHILS # (AUTO) 3.1 X 10^3 (1.8-7.8); NEUTROPHILS % (AUTO) 64 % (42-75); PLATELET COUNT 383 10^3/uL (130-400); WHITE BLOOD COUNT 4.8 10^3/uL (4.3-11.0)
[2020-01-15 18:26] LABS: ALBUMIN 4.3 GM/DL (3.2-4.5); POTASSIUM 4.3 MMOL/L (3.6-5.0)
[2020-01-15 18:27] LABS: CALCIUM 8.9 MG/DL (8.5-10.1)
[2020-01-15 18:28] LABS: INR 1.2 (0.8-1.4); PROTHROMBIN TIME PATIENT 15.2 SEC (12.2-14.7); TOTAL PROTEIN 6.6 GM/DL (6.4-8.2)
[2020-01-15 18:30] LABS: BILIRUBIN,TOTAL 0.3 MG/DL (0.1-1.0)
[2020-01-15 18:32] LABS: CREATININE SERUM 2.19 MG/DL (0.60-1.30)
--- NOTE | 2020-01-15 18:38 | ED General ---
General Chief Complaint: General Problems/Pain Stated Complaint: ABNORMAL LABS Nursing Triage Note: PT AMB TO [facility] 6 WITH COMPLAINT OF LOW HGB. STATES HE WAS CALLED BY ROSEANN @ [facility] SAYING THAT IS HGB WAS 7 AFTER HAVING ROUTINE LAB WORK TODAY. STATES HE HAS NOT BEEN FEELING HIMSELF FOR A FEW WEEKS, BUT STATES HE GOT HOT ONE DAY OUTSIDE AND THOUGHT THAT WAS THE CAUSE. Nursing Sepsis Screen: No Definite Risk Source of Information: Patient History of Present Illness Date Seen by Provider: Jan 15, 2020 Time Seen by Provider: 18:15 Initial Comments PT ARRIVES VIA POV FROM HOME STATES HE HAD ROUTINE ( EVERY 6 MONTHS ) LAB DONE BY [facility] --DONE AT A LOCAL OUTSIDE LAB--FOR ROUTINE FOLLOW UP OF POLYCYSTIC KIDNEY DISEASE AND POLYCYTHEMIA--WAS CALLED BY ROSEANN FROM TODAY AND WAS TOLD THAT HIS HGB WAS 7 AND HE NEEDED TO CALL THE [facility]Y [facility] WORKER ONCOLOGIST OR "GO TO ER" PT HAD BEEN FOLLOWED LOCALLY BY DR. SORIA, WITH HEMATOLOGY/ONCOLOGY, AND THEN 2-3 WEEKS AGO HE HAD HIS FIRST APPOINTMENT WITH DR. REGAN WITH HEMATOLOGY/ONCOLOGY SINCE DR. SORIA LEFT THE AREA--TO ESTABLISH CARE. HE HAD ROUTINE LAB DONE AT THAT APPOINTMENT, WAS TOLD "NOTHING OUT OF THE ORDINARY" BUT DOES NOT KNOW ACTUAL RESULTS OF TESTS--HB 11.0, AND WAS 11/5 IN OCTOBER OF THIS YEAR. WAS 13.5 IN MAY 2019 PT HAS BEEN ON TREATMENT FOR OVER 6 MONTHS FOR POLYCYTHEMIA AND NOT HAD ANY UT OBLEMS PT STATES IT HAS BEEN OVER A YEAR SINCE HE HAD A THERAPEUTIC PHLEBOTOMY FOR POLYCYTHEMIA HAS ALSO HAD ANEMIA IN THE PAST AND HAD IRON INFUSIONS YEARS AGO--STATES THAT WAS HOW IT WAS DISCOVERED THAT HE HAD POLYCYTHEMIA PT DENIES ANY SPECIFIC SYMPTOMS OTHER THAN HE HAS "FELT A LITTLE OFF" THE LAST 2-3 DAYS--STATES HE THOUGHT IT WAS BECAUSE HE "GOT TOO HOT" AFTER BEING OUTSIDE FOR A FEW HOURS, A FEW DAYS AGO. HAD VERY SLIGHT/VERY BRIEF EPISODE OF LIGHTHEADEDNESS A FEW DAYS AGO NO GI SYMPTOMS OF ANY KIND--HAS BEEN EATING AND DRINKING WELL, NORMAL BM'S--NO BLACK/BLOODY/TARRY STOOLS. NO CHEST PAIN OR SHORTNESS OF BREATH OR PALPITATIONS NO COUGH NO URINARY SYMPTOMS OR HEMATURIA NO FEVER/SWEATS/CHILLS NO BLEEDING FROM GUMS, NO NOSEBLEEDS, AND NO EXCESSIVE BRUISING OR PETECHIAE ANYWHERE NO PAIN ANYWHERE NO HEADACHES NO VISION CHANGES NO PARESTHESIAS OR MOTOR DEFICITS HAS HISTORY OF COLON POLYPS AND FAMILY HISTORY OF COLON CANCER--LAST COLONOSCOPY WAS 08/[address] BARRON--HAD 2 SMALL POLYPS REMOVED ( BENIGN TUBULAR ADENOMAS) , MILD DIVERTICULAR DISEASE AND MILD HEMORRHOIDS. PCP: DR. BARRON HEMATOLOGY/ONCOLOGY: DR. REGAN POLYCYSTIC KIDNEY DISEASE: [facility] Allergies and Home Medications Allergies Coded Allergies: No Known Drug Allergies (Unverified , 08/23/18) Home Medications Allopurinol 100 Mg Tablet, 200 MG PO DAILY, (Reported) Bisoprolol Fumarate/Hctz 1 Each Tablet, 1 EACH PO DAILY, (Reported) Cholecalciferol (Vitamin D3) 2,000 Unit Capsule, 2,000 UNIT PO DAILY, (Reported) Lisinopril 10 Mg Tablet, 10 MG PO DAILY, (Reported) Patient Home Medication List Home Medication List Reviewed: Yes Review of Systems Review of Systems Constitutional: see HPI; No chills, No diaphoresis; dizziness; No fever, No malaise, No weakness EENTM: no symptoms reported Respiratory: no symptoms reported; No cough, No dyspnea on exertion, No o rthopnea, No short of breath Cardiovascular: no symptoms reported; No chest pain, No edema, No palpitations, No syncope, No vascular heart diseas Gastrointestinal: no symptoms reported; No abdominal pain, No constipation, No diarrhea, No dysphagia, No hematemesis, No loss of appetite, No melena, No nausea, No vomiting Genitourinary: no symptoms reported Musculoskeletal: no symptoms reported Skin: no symptoms reported Psychiatric/Neurological: No Symptoms Reported; Denies Headache, Denies Numbness, Denies Paresthesia, Denies Seizure, Denies Tingling, Denies Weakness Hematologic/Lymphatic: See HPI, Anemia; Denies Blood Clots, Denies Easy Bleeding, Denies Easy Bruising, Denies Swollen Glands Immunological/Allergic: no symptoms reported Past Dikwomv-Gdbvbr-Nioump Hx Past Med/Social Hx: Reviewed and Corrections made Patient Social History Alcohol Use: Denies Use Recreational Drug Use: No Smoking Status: Never a Smoker 2nd Hand Smoke Exposure: No Recent Foreign Travel: No Contact w/Someone Who Travel: No Recent Infectious Disease Expo: No Recent Hopitalizations: No Immunizations Up To Date Tetanus Booster (TDap): Unknown Date of Pneumonia Vaccine: Mar 27, 2018 Date of Influenza Vaccine: Mar 27, 2018 Seasonal Allergies Seasonal Allergies: No Past Medical History Surgeries: Yes ( LITHOTRIPSY AND URETERAL STENT; ORAL/GUM SURGERY; COLONOSCOPIES) Renal Respiratory: No Cardiac: Yes Hypertension Neurological: No Sexually Transmitted Disease: No HIV/AIDS: No Genitourinary: Yes (LILTHOTRIPSY AND URETERAL STENT X 1) Kidney Stones, Polycystic Kidney Disease Gastrointestinal: Yes (DIVERTICULOSIS NOTED ON COLONSCOPY-NO ACUTE DIVERTICULITIS) Diverticulosis, Polyps Musculoskeletal: Yes Gout Endocrine: No HEENT: Yes (GLASSES; ORAL/GUM SURGERY) Loss of Vision: Bilateral Hearing Impairment: Denies Cancer: Yes (POLYCYTHEMIA VERA RUBRA) Did You Recieve Any Treatments: Yes What Type of Treatment Did You: Chemotherapy Psychosocial: No Integumentary: No Blood Disorders: Yes (POLYCYTHEMIA VERA RUBRA-[place] W/ THREAPEUTIC PHLEBOTOMY IN PAST, NOW ORAL MEDS) Adverse Reaction/Blood Tranf: No HAD BLOOD TRANSFUSION YEARS AGO AFTER ORAL SURGERY HAS HAD THERAPEUTIC PHLEBOTOMIES IN PAST FOR POLYCYTHEMIA, NONE FOR OVER A YEAR HAS ALSO HAD IRON INFUSIONS IN PAST FOR ANEMIA Family Medical History No Pertinent Family Hx Physical Exam Vital Signs Vital Signs - First Documented 01/15/20 17:47 Temp 36.0 Pulse 68 Resp 21 B/P (MAP) 139/66 (90) Pulse Ox 99 O2 Delivery Room Air Capillary Refill : Less Than 3 Seconds Height, Weight, BMI Height: 5'11.00" Weight: 215lbs. 0.0oz. 97.736424bf; 29.00 BMI Method:Stated General Appearance: No Apparent Distress, WD/WN, Other (VERY PLEASANT, TALKATIVE, NO ACUTE DISTRESS OR DISCOMFORT. DOES NOT APPEAR ILL) HEENT: Pale Conjunctivae (L), Pale Conjunctivae (R) Neck: Normal Inspection Respiratory: Normal Breath Sounds, No Accessory Muscle Use, No Respiratory Distress Cardiovascular: Regular Rate, Rhythm, No Edema, No JVD, No Murmur, Normal Peripheral Pulses Gastrointestinal: Non Tender, Soft; No Mass; Other (ROTUND) Back: No CVA Tenderness Extremity: Normal Capillary Refill, Normal Inspection, Normal Range of Motion, Non Tender, No Calf Tenderness, No Pedal Edema Neurologic/Psychiatric: Alert, Oriented x3, No Motor/Sensory Deficits, Normal Mood/Affect, metrology manager II-XII Norm as Tested Skin: Normal Color, Warm/Dry; No Ecchymosis, No Pallor, No Petechia, No Rash Progress/Results/Core Measures Suspected Sepsis Recent Fever Within 48 Hours: No Infection Criteria Present: None New/Unexplained Altered Menta: No Sepsis Screen: No Definite Risk SIRS Temperature: Pulse: 68 Respiratory Rate: 21 Laboratory Tests 01/15/20 18:02: White Blood Count 4.8 Blood Pressure 139 /66 Mean: 90 Laboratory Tests 01/15/20 18:02: Creatinine 2.19H, INR Comment 1.2, Platelet Count 383, Total Bilirubin 0.3 Results/Orders Lab Results Laboratory Tests Test 01/15/20 18:02 01/15/20 19:49 Range/Units White Blood Count 4.8 4.3-11.0 10^3/uL Red Blood Count 2.90 L 4.35-5.85 10^6/uL Hemoglobin 7.0 L 13.3-17.7 G/DL Hematocrit 23 L 40-54 % Mean Corpuscular Volume 80 80-99 FL Mean Corpuscular Hemoglobin 24 L 25-34 PG Mean Corpuscular Hemoglobin Concent 30 L 32-36 G/DL Red Cell Distribution Width 17.0 H 10.0-14.5 % Platelet Count 383 130-400 10^3/uL Mean Platelet Volume 10.8 H 7.4-10.4 FL Neutrophils (%) (Auto) 64 42-75 % Lymphocytes (%) (Auto) 26 12-44 % Monocytes (%) (Auto) 8 0-12 % Eosinophils (%) (Auto) 0 0-10 % Basophils (%) (Auto) 2 0-10 % Neutrophils # (Auto) 3.1 1.8-7.8 X 10^3 Lymphocytes # (Auto) 1.2 1.0-4.0 X 10^3 Monocytes # (Auto) 0.4 0.0-1.0 X 10^3 Eosinophils # (Auto) 0.0 0.0-0.3 10^3/uL Basophils # (Auto) 0.1 0.0-0.1 10^3/uL Prothrombin Time 15.2 H 12.2-14.7 SEC INR Comment 1.2 0.8-1.4 Activated Partial Thromboplast Time 33 24-35 SEC Sodium Level 139 135-145 MMOL/L Potassium Level 4.3 3.6-5.0 MMOL/L Chloride Level 109 H 98-107 MMOL/L Carbon Dioxide Level 20 L 21-32 MMOL/L Anion Gap 10 5-14 MMOL/L Blood Urea Nitrogen 49 H 7-18 MG/DL Creatinine 2.19 H 0.60-1.30 MG/DL Estimat Glomerular Filtration Rate 30 BUN/Creatinine Ratio 22 Glucose Level 120 H 70-105 MG/DL Calcium Level 8.9 8.5-10.1 MG/DL Corrected Calcium 8.7 8.5-10.1 MG/DL Total Bilirubin 0.3 0.1-1.0 MG/DL Aspartate Amino Transf (AST/SGOT) 33 5-34 U/L Alanine Aminotransferase (ALT/SGPT) 32 0-55 U/L Alkaline Phosphatase 64 40-136 U/L Total Protein 6.6 6.4-8.2 GM/DL Albumin 4.3 3.2-4.5 GM/DL Urine Color YELLOW Urine Clarity CLEAR Urine pH 5.5 5-9 Urine Specific [place] 1.020 1.016-1.022 Urine Protein NEGATIVE NEGATIVE Urine Glucose (UA) NEGATIVE NEGATIVE Urine Ketones NEGATIVE NEGATIVE Urine Nitrite NEGATIVE NEGATIVE Urine Bilirubin NEGATIVE NEGATIVE Urine Urobilinogen 0.2 < = 1.0 MG/DL Urine Leukocyte Esterase NEGATIVE NEGATIVE Urine RBC (Auto) NEGATIVE NEGATIVE Urine RBC NONE /HPF Urine WBC 2-5 /HPF Urine Crystals PRESENT H /LPF Urine Amorphous Sediment RARE SAMY URATES H /LPF Urine Bacteria NEGATIVE /HPF Urine Casts NONE /LPF Urine Mucus SMALL H /LPF Urine Culture Indicated NO My Orders Orders - SAIDA STEWART DO Ed Iv/Invasive Line Start (01/15/20 18:15) O2 (01/15/20 18:15) Monitor-Rhythm Ecg Trace Only (01/15/20 18:15) Cbc With Automated Diff (01/15/20 18:15) Comprehensive Metabolic Panel (01/15/20 18:15) Protime With Inr (01/15/20 18:15) Partial Thromboplastin Time (01/15/20 18:15) Red Cells Leukocytes Reduced (01/15/20 18:15) Type And Screen (01/15/20 18:15) Ct Chest/Abdomen/Pelvis Wo (01/15/20 18:30) Ua Culture If Indicated (01/15/20 18:31) Ns (Ivpb) (Sodium Chloride 0.9%) (01/15/20 19:29) Medications Given in ED Current Medications Medications Dose Ordered Sig/Mendez Route Start Time Stop Time Status Last Admin Dose Admin Sodium Chloride 250 ml @ ud STK-MED ONCE .ROUTE 01/15/20 19:29 01/15/20 19:33 DC 01/15/20 19:47 100 MLS/HR Vital Signs/I&O 01/15/20 01/15/20 01/15/20 01/15/20 17:47 19:45 19:52 20:58 Temp 36.0 36.7 36.6 36.4 Pulse 68 53 53 50 Resp 21 12 10 14 B/P (MAP) 139/66 (90) 104/56 105/44 115/55 Pulse Ox 99 96 100 98 O2 Delivery Room Air Room Air Room Air 01/15/20 21:15 Temp 36.4 Pulse 52 Resp 10 B/P (MAP) 115/55 Pulse Ox 98 O2 Delivery Room Air 01/16/20 00:00 Intake Total 100 ml Balance 100 ml Capillary Refill : Less Than 3 Seconds Blood Pressure Mean: 90 Progress Note : Progress Note TRANSFUSED 1 UNIT IN ER PT ASYMPTOMATIC DURING ER STAY ALL VITALS STABLE Diagnostic Imaging Comments CT ABDOMEN/PELVIS--NO ACUTE PROCESS, SIGNIFICANT POLYCYSTIC KIDNEY DISEASE AND HEPATIC CYST--ALL UNCHANGED FROM PREVIOUS--PER DR. MERINO VIA PHONE AT 1900 Reviewed: Reviewed by Me, Discussed w/Radiologist Departure Communication (Admissions) UNABLE TO CONTACT DR. REGAN AT THIS TIME 0702--SPOKE WITH DR. PENALOZA, ADVISES TO TRANSFUSE ONLY 1 UNIT TONIGHT AND MAY SEND HOME AND HAVE PT FOLLOW UP WITH DR. BARRON AND DR. REGAN Impression Primary Impression: Anemia Additional Impressions: Hx of polycythemia vera hx of colon polyps Polycystic kidney disease Disposition: HOME, SELF-CARE Condition: Stable Departure-Patient Inst. Referrals: ORTIZ BARRON MD (PCP/Family) Primary Care Physician NELL REGAN MD Patient Instructions: Blood Transfusion , Normocytic Normochromic Anemia (DC) Add. Discharge Instructions: TAKE MULTIVITAMIN WITH IRON DAILY FOLLOW UP WITH BOTH DR. BARRON AND DR. REGAN THIS WEEK FOR FURTHER CARE RETURN TO ER IF PROBLEMS All discharge instructions reviewed with patient and/or family. Voiced understanding. SAIDA STEWART DO Jan 15, 2020 18:38
--- NOTE | 2020-01-15 19:10 | Diagnostic Imaging Report ---
PROCEDURE: CT chest, abdomen, and pelvis without contrast. TECHNIQUE: Multiple contiguous axial images were obtained through the chest, abdomen, and pelvis without the use of intravenous contrast. Auto Exposure Controls were utilized during the CT exam to meet ALARA standards for radiation dose reduction. INDICATION: Low hemoglobin. FINDINGS: The previous CT abdomen/pelvis exam of 01/23/2013 noted multiple cysts of varying sizes involving both kidneys. This appearance was felt to be related to polycystic kidney disease. Those cysts are again evident on this exam and do measure somewhat larger. The largest cyst on the right is now estimated to be 13.6 cm opposed to 12.7 cm on the previous study. The largest cyst on the left measures 13.7 cm as opposed to 13.6 cm previously. The nonobstructive calculus within the right kidney seen previously is again evident. There is no sign of a solid renal mass or of hydronephrosis. The cyst within the liver noted on the prior study have also increased in size and now measure 4.6 x 5.0 cm as opposed to 2.1 x 3.3 cm previously. This cyst has a generally benign appearance. The liver, gallbladder, spleen, pancreas, adrenals, aorta and inferior vena cava show no sign of an acute abnormality. The stomach is partially filled with fluid and difficult to assess. There is no pelvic mass or free fluid collection noted. The urinary bladder and prostate gland are grossly unremarkable. There is diverticulosis of the sigmoid and descending colon but there is no sign of acute diverticulitis. The appendix was visualized and is not abnormally thickened. The images through the thorax show that the heart size is within normal limits. The aorta is not abnormally dilated. The lungs are generally clear. There is no sign of failure, pneumonia or of pleural effusion. There is no obvious mediastinal or hilar adenopathy. The thyroid gland is generally unremarkable. The bone windows show no evidence for a fracture or for a destructive lesion. There is degenerative disc and bone disease throughout the lower thoracic and lumbar spine. 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 There is also trefoil stenosis at L3-L4 again with neural foraminal narrowing bilaterally more so on the left. IMPRESSION: 1. There is no acute abnormality of the chest, abdomen or pelvis. 2. The multiple cysts involving the kidneys and of the cysts in the liver seen previously are again evident and do not appear to have changed significantly. The appearance of the kidneys does suggest polycystic kidney disease. 3. These results were discussed with Dr. Lucita Gaspar. Dictated by: Dictated on workstation # [id number]
[2020-01-15] MEDS ORDERED: NS (IVPB) 250 ML ONE (19:29)
[2020-01-15 19:45] VITALS: BP 104/56
[2020-01-15 19:52] VITALS: BP 105/44
[2020-01-15 19:54] LABS: BILIRUBIN,URINE NEGATIVE (NEGATIVE); CLARITY,URINE CLEAR; COLOR,URINE YELLOW; GLUCOSE, URINE (UA) NEGATIVE (NEGATIVE); KETONES,URINE NEGATIVE (NEGATIVE); LEUKOCYTE ESTERASE ,URINE NEGATIVE (NEGATIVE); NITRITE,URINE NEGATIVE (NEGATIVE); PH,URINE 5.5 (5-9); PROTEIN,URINE NEGATIVE (NEGATIVE)
[2020-01-15 20:14] LABS: AMORPHOUS SEDIMENT,UR RARE AMOR URATES /LPF; BACTERIA,URINE NEGATIVE /HPF
[2020-01-15 20:58] VITALS: BP 115/55
[2020-01-15 21:15] VITALS: BP 115/55
== END 2020-01-15 21:15 | disposition home or self-care (01) ==
LOC: EDUNIT# 17:34 → ER 17:35
DX: D50.9 Iron deficiency anemia, unspecified (principal); Q61.3 Polycystic kidney, unspecified; I10 Essential (primary) hypertension; M10.9 Gout, unspecified; Z86.2 Personal history of diseases of the blood and blood-forming organs and certain disorders involving the immune mechanism; Z86.010 Personal history of colon polyps; Z80.0 Family history of malignant neoplasm of digestive organs
CPT/HCPCS: 36430; 71250; 74176; 80053; 81000; 85025; 85610; 85730; 86850; 86900; 86901; 86920; 93041; 99285; P9016; 36415

== ENCOUNTER 2020-02-22 08:25 | Outpatient (RCR) | payer MEDICARE, OTHER ==
[2019-12-20 09:12] LABS: BASOPHILS # (AUTO) 0.1 10^3/uL (0.0-0.1); BASOPHILS % (AUTO) 1 % (0-10); EOSINOPHILS # (AUTO) 0.1 10^3/uL (0.0-0.3); EOSINOPHILS % (AUTO) 2 % (0-10); HEMATOCRIT 36 % (40-54); LYMPHOCYTES # (AUTO) 1.2 X 10^3 (1.0-4.0); LYMPHOCYTES % (AUTO) 24 % (12-44); MEAN CORPUSCULAR HEMOGLOBIN 25 PG (25-34); MEAN CORPUSCULAR HGB CONC 31 G/DL (32-36); MEAN CORPUSCULAR VOLUME 81 FL (80-99); MEAN PLATELET VOLUME 10.6 FL (7.4-10.4); MONOCYTES # (AUTO) 0.5 X 10^3 (0.0-1.0); MONOCYTES % (AUTO) 10 % (0-12); NEUTROPHILS # (AUTO) 3.3 X 10^3 (1.8-7.8); NEUTROPHILS % (AUTO) 64 % (42-75); PLATELET COUNT 299 10^3/uL (130-400); WHITE BLOOD COUNT 5.2 10^3/uL (4.3-11.0)
[2020-02-22 08:34] LABS: BASOPHILS # (AUTO) 0.1 10^3/uL (0.0-0.1); BASOPHILS % (AUTO) 1 % (0-10); EOSINOPHILS # (AUTO) 0.1 10^3/uL (0.0-0.3); EOSINOPHILS % (AUTO) 1 % (0-10); HEMATOCRIT 32 % (40-54); HEMOGLOBIN 9.4 G/DL (13.3-17.7); LYMPHOCYTES % (AUTO) 19 % (12-44); MEAN CORPUSCULAR HGB CONC 29 G/DL (32-36); MEAN CORPUSCULAR VOLUME 78 FL (80-99); MEAN PLATELET VOLUME 10.1 FL (7.4-10.4); MONOCYTES # (AUTO) 0.5 X 10^3 (0.0-1.0); MONOCYTES % (AUTO) 9 % (0-12); NEUTROPHILS # (AUTO) 3.8 X 10^3 (1.8-7.8); NEUTROPHILS % (AUTO) 70 % (42-75); PLATELET COUNT 312 10^3/uL (130-400); WHITE BLOOD COUNT 5.4 10^3/uL (4.3-11.0)
[2020-02-22 08:35] LABS: MEAN CORPUSCULAR HEMOGLOBIN 22 PG (25-34)
== END 2020-03-07 08:35 | disposition home or self-care (01) ==
LOC: ONC 08:25
PROVIDERS: ATTEND Internal Medicine Hematology & Oncology
DX: D45 Polycythemia vera (principal); I10 Essential (primary) hypertension; D64.9 Anemia, unspecified; Q61.3 Polycystic kidney, unspecified; M19.91 Primary osteoarthritis, unspecified site; Z79.899 Other long term (current) drug therapy
CPT/HCPCS: 85025; G0463; 99213

== ENCOUNTER 2020-05-06 09:26 | Outpatient (RCR) | payer MEDICARE, OTHER ==
[2020-03-20 09:37] LABS: BASOPHILS # (AUTO) 0.1 10^3/uL (0.0-0.1); BASOPHILS % (AUTO) 2 % (0-10); EOSINOPHILS # (AUTO) 0.1 10^3/uL (0.0-0.3); EOSINOPHILS % (AUTO) 2 % (0-10); HEMATOCRIT 37 % (40-54); HEMOGLOBIN 10.2 g/dL (13.3-17.7); LYMPHOCYTES # (AUTO) 0.9 10^3/uL (1.0-4.0); LYMPHOCYTES % (AUTO) 16 % (12-44); MEAN CORPUSCULAR HEMOGLOBIN 21 pg (25-34); MEAN CORPUSCULAR HGB CONC 28 g/dL (32-36); MEAN CORPUSCULAR VOLUME 76 fL (80-99); MEAN PLATELET VOLUME 10.5 fL (9.0-12.2); MONOCYTES # (AUTO) 0.5 10^3/uL (0.0-1.0); MONOCYTES % (AUTO) 9 % (0-12); NEUTROPHILS # (AUTO) 3.8 10^3/uL (1.8-7.8); NEUTROPHILS % (AUTO) 72 % (42-75); PLATELET COUNT 317 10^3/uL (130-400); WHITE BLOOD COUNT 5.4 10^3/uL (4.3-11.0)
[2020-05-02 09:02] LABS: BASOPHILS # (AUTO) 0.1 10^3/uL (0.0-0.1); BASOPHILS % (AUTO) 2 % (0-10); EOSINOPHILS # (AUTO) 0.2 10^3/uL (0.0-0.3); EOSINOPHILS % (AUTO) 3 % (0-10); HEMATOCRIT 44 % (40-54); LYMPHOCYTES # (AUTO) 0.9 10^3/uL (1.0-4.0); LYMPHOCYTES % (AUTO) 17 % (12-44); MEAN CORPUSCULAR HEMOGLOBIN 20 pg (25-34); MEAN CORPUSCULAR HGB CONC 28 g/dL (32-36); MEAN CORPUSCULAR VOLUME 72 fL (80-99); MEAN PLATELET VOLUME 9.6 fL (9.0-12.2); MONOCYTES # (AUTO) 0.5 10^3/uL (0.0-1.0); MONOCYTES % (AUTO) 9 % (0-12); NEUTROPHILS # (AUTO) 3.6 10^3/uL (1.8-7.8); NEUTROPHILS % (AUTO) 69 % (42-75); PLATELET COUNT 306 10^3/uL (130-400); WHITE BLOOD COUNT 5.3 10^3/uL (4.3-11.0)
[2020-05-02 09:18] LABS: ALBUMIN 4.1 GM/DL (3.2-4.5); BILIRUBIN,TOTAL 0.5 MG/DL (0.1-1.0); CALCIUM 9.2 MG/DL (8.5-10.1); CREATININE SERUM 1.34 MG/DL (0.60-1.30); TOTAL PROTEIN 6.7 GM/DL (6.4-8.2)
== END 2020-06-18 | disposition home or self-care (01) ==
LOC: ONC 09:26
PROVIDERS: ATTEND Internal Medicine Hematology & Oncology
DX: D45 Polycythemia vera (principal); I10 Essential (primary) hypertension; D50.9 Iron deficiency anemia, unspecified; Q61.3 Polycystic kidney, unspecified; M19.91 Primary osteoarthritis, unspecified site; Z79.899 Other long term (current) drug therapy
CPT/HCPCS: 80053; 82728; 83540; 85025; 99213

== ENCOUNTER 2020-10-16 09:58 | Outpatient (RCR) | payer MEDICARE, OTHER ==
[2020-07-25 08:55] LABS: BASOPHILS # (AUTO) 0.1 10^3/uL (0.0-0.1); BASOPHILS % (AUTO) 1 % (0-10); EOSINOPHILS # (AUTO) 0.1 10^3/uL (0.0-0.3); EOSINOPHILS % (AUTO) 2 % (0-10); HEMATOCRIT 55 % (40-54); HEMOGLOBIN 16.2 g/dL (13.3-17.7); LYMPHOCYTES % (AUTO) 16 % (12-44); MEAN CORPUSCULAR HEMOGLOBIN 23 pg (25-34); MEAN CORPUSCULAR HGB CONC 29 g/dL (32-36); MEAN CORPUSCULAR VOLUME 77 fL (80-99); MEAN PLATELET VOLUME 10.1 fL (9.0-12.2); MONOCYTES # (AUTO) 0.5 10^3/uL (0.0-1.0); MONOCYTES % (AUTO) 9 % (0-12); NEUTROPHILS # (AUTO) 4.2 10^3/uL (1.8-7.8); NEUTROPHILS % (AUTO) 71 % (42-75); PLATELET COUNT 245 10^3/uL (130-400); WHITE BLOOD COUNT 5.9 10^3/uL (4.3-11.0)
[2020-07-25 09:16] LABS: BILIRUBIN,TOTAL 0.5 MG/DL (0.1-1.0); CALCIUM 9.3 MG/DL (8.5-10.1); CREATININE SERUM 1.49 MG/DL (0.60-1.30); POTASSIUM 4.5 MMOL/L (3.6-5.0); TOTAL PROTEIN 6.9 GM/DL (6.4-8.2)
[2020-09-16 09:45] LABS: BASOPHILS # (AUTO) 0.1 10^3/uL (0.0-0.1); BASOPHILS % (AUTO) 2 % (0-10); EOSINOPHILS # (AUTO) 0.1 10^3/uL (0.0-0.3); EOSINOPHILS % (AUTO) 2 % (0-10); HEMATOCRIT 62 % (40-54); HEMOGLOBIN 18.6 g/dL (13.3-17.7); LYMPHOCYTES % (AUTO) 18 % (12-44); MEAN CORPUSCULAR HEMOGLOBIN 24 pg (25-34); MEAN CORPUSCULAR HGB CONC 30 g/dL (32-36); MEAN CORPUSCULAR VOLUME 79 fL (80-99); MEAN PLATELET VOLUME 9.8 fL (9.0-12.2); MONOCYTES # (AUTO) 0.5 10^3/uL (0.0-1.0); MONOCYTES % (AUTO) 9 % (0-12); NEUTROPHILS # (AUTO) 3.9 10^3/uL (1.8-7.8); NEUTROPHILS % (AUTO) 68 % (42-75); PLATELET COUNT 246 10^3/uL (130-400); WHITE BLOOD COUNT 5.8 10^3/uL (4.3-11.0)
[2020-09-16 10:03] LABS: ALBUMIN 4.2 GM/DL (3.2-4.5); BILIRUBIN,TOTAL 0.7 MG/DL (0.1-1.0); CALCIUM 9.6 MG/DL (8.5-10.1); CREATININE SERUM 1.56 MG/DL (0.60-1.30); POTASSIUM 4.2 MMOL/L (3.6-5.0); TOTAL PROTEIN 7.2 GM/DL (6.4-8.2)
[2020-10-13 09:13] LABS: BASOPHILS # (AUTO) 0.1 10^3/uL (0.0-0.1); BASOPHILS % (AUTO) 2 % (0-10); EOSINOPHILS # (AUTO) 0.1 10^3/uL (0.0-0.3); EOSINOPHILS % (AUTO) 3 % (0-10); HEMATOCRIT 56 % (40-54); HEMOGLOBIN 16.7 g/dL (13.3-17.7); LYMPHOCYTES # (AUTO) 0.9 10^3/uL (1.0-4.0); LYMPHOCYTES % (AUTO) 16 % (12-44); MEAN CORPUSCULAR HEMOGLOBIN 24 pg (25-34); MEAN CORPUSCULAR HGB CONC 30 g/dL (32-36); MEAN CORPUSCULAR VOLUME 79 fL (80-99); MEAN PLATELET VOLUME 10.2 fL (9.0-12.2); MONOCYTES # (AUTO) 0.5 10^3/uL (0.0-1.0); MONOCYTES % (AUTO) 8 % (0-12); NEUTROPHILS % (AUTO) 72 % (42-75); PLATELET COUNT 277 10^3/uL (130-400); WHITE BLOOD COUNT 5.6 10^3/uL (4.3-11.0)
[2020-10-13 09:33] LABS: ALBUMIN 3.9 GM/DL (3.2-4.5); BILIRUBIN,TOTAL 0.7 MG/DL (0.1-1.0); CALCIUM 9.2 MG/DL (8.5-10.1); CREATININE SERUM 1.42 MG/DL (0.60-1.30); POTASSIUM 4.2 MMOL/L (3.6-5.0); TOTAL PROTEIN 6.7 GM/DL (6.4-8.2)
[~2020-10-16 09:58] MED LIST changes: -LISI10TA2 PO; +LISI10TA25 PO
== END 2020-10-23 | disposition home or self-care (01) ==
LOC: ONC 09:58
PROVIDERS: ATTEND Internal Medicine Hematology & Oncology
DX: D45 Polycythemia vera (principal); I10 Essential (primary) hypertension; D50.9 Iron deficiency anemia, unspecified; Q61.3 Polycystic kidney, unspecified; M19.91 Primary osteoarthritis, unspecified site; Z79.899 Other long term (current) drug therapy
CPT/HCPCS: 80053; 82728; 83540; 83550; 85025; 99195; 99213

== ENCOUNTER 2020-12-15 07:59 | Outpatient (RCR) | payer MEDICARE, OTHER ==
[2020-11-10 10:35] LABS: BASOPHILS # (AUTO) 0.1 10^3/uL (0.0-0.1); BASOPHILS % (AUTO) 2 % (0-10); EOSINOPHILS # (AUTO) 0.1 10^3/uL (0.0-0.3); EOSINOPHILS % (AUTO) 2 % (0-10); HEMATOCRIT 58 % (40-54); HEMOGLOBIN 17.4 g/dL (13.3-17.7); LYMPHOCYTES % (AUTO) 19 % (12-44); MEAN CORPUSCULAR HEMOGLOBIN 24 pg (25-34); MEAN CORPUSCULAR HGB CONC 30 g/dL (32-36); MEAN CORPUSCULAR VOLUME 79 fL (80-99); MONOCYTES # (AUTO) 0.4 10^3/uL (0.0-1.0); MONOCYTES % (AUTO) 7 % (0-12); NEUTROPHILS # (AUTO) 3.5 10^3/uL (1.8-7.8); NEUTROPHILS % (AUTO) 69 % (42-75); PLATELET COUNT 247 10^3/uL (130-400); WHITE BLOOD COUNT 5.1 10^3/uL (4.3-11.0)
[2020-11-10 10:55] LABS: ALBUMIN 3.8 GM/DL (3.2-4.5); BILIRUBIN,TOTAL 0.8 MG/DL (0.1-1.0); CALCIUM 8.9 MG/DL (8.5-10.1); CREATININE SERUM 1.38 MG/DL (0.60-1.30); POTASSIUM 4.2 MMOL/L (3.6-5.0); TOTAL PROTEIN 6.4 GM/DL (6.4-8.2)
[2020-12-08 10:29] LABS: BASOPHILS # (AUTO) 0.1 10^3/uL (0.0-0.1); BASOPHILS % (AUTO) 3 % (0-10); EOSINOPHILS # (AUTO) 0.1 10^3/uL (0.0-0.3); EOSINOPHILS % (AUTO) 2 % (0-10); HEMATOCRIT 59 % (40-54); HEMOGLOBIN 17.8 g/dL (13.3-17.7); LYMPHOCYTES % (AUTO) 18 % (12-44); MEAN CORPUSCULAR HEMOGLOBIN 24 pg (25-34); MEAN CORPUSCULAR HGB CONC 30 g/dL (32-36); MEAN CORPUSCULAR VOLUME 78 fL (80-99); MEAN PLATELET VOLUME 9.5 fL (9.0-12.2); MONOCYTES # (AUTO) 0.4 10^3/uL (0.0-1.0); MONOCYTES % (AUTO) 8 % (0-12); NEUTROPHILS # (AUTO) 3.9 10^3/uL (1.8-7.8); NEUTROPHILS % (AUTO) 70 % (42-75); PLATELET COUNT 238 10^3/uL (130-400); WHITE BLOOD COUNT 5.5 10^3/uL (4.3-11.0)
[2020-12-08 10:51] LABS: CALCIUM 9.5 MG/DL (8.5-10.1); CREATININE SERUM 1.53 MG/DL (0.60-1.30); POTASSIUM 4.5 MMOL/L (3.6-5.0); TOTAL PROTEIN 6.9 GM/DL (6.4-8.2)
== END 2021-02-08 | disposition home or self-care (01) ==
LOC: ONC 07:59
PROVIDERS: ATTEND Internal Medicine Hematology & Oncology
DX: D45 Polycythemia vera (principal); I10 Essential (primary) hypertension; D50.9 Iron deficiency anemia, unspecified; Q61.3 Polycystic kidney, unspecified; N18.9 Chronic kidney disease, unspecified; D63.1 Anemia in chronic kidney disease; M19.91 Primary osteoarthritis, unspecified site; Z79.899 Other long term (current) drug therapy
CPT/HCPCS: 80053; 82728; 83540; 83550; 85025; 99195; 99213

== ENCOUNTER 2021-02-07 15:54 | Emergency (ER) | payer MEDICARE, OTHER ==
[~2021-02-07] VITALS: Ht 180.3 cm; Wt 98.0 kg
[2021-02-07 17:02] LABS: BASOPHILS # (AUTO) 0.1 10^3/uL (0.0-0.1); BASOPHILS % (AUTO) 1 % (0-10); EOSINOPHILS # (AUTO) 0.1 10^3/uL (0.0-0.3); EOSINOPHILS % (AUTO) 2 % (0-10); HEMATOCRIT 56 % (40-54); HEMOGLOBIN 16.7 g/dL (13.3-17.7); LYMPHOCYTES # (AUTO) 1.1 10^3/uL (1.0-4.0); LYMPHOCYTES % (AUTO) 17 % (12-44); MEAN CORPUSCULAR HEMOGLOBIN 23 pg (25-34); MEAN CORPUSCULAR HGB CONC 30 g/dL (32-36); MEAN CORPUSCULAR VOLUME 77 fL (80-99); MEAN PLATELET VOLUME 9.8 fL (9.0-12.2); MONOCYTES # (AUTO) 0.4 10^3/uL (0.0-1.0); MONOCYTES % (AUTO) 7 % (0-12); NEUTROPHILS # (AUTO) 4.5 10^3/uL (1.8-7.8); NEUTROPHILS % (AUTO) 72 % (42-75); PLATELET COUNT 299 10^3/uL (130-400); WHITE BLOOD COUNT 6.2 10^3/uL (4.3-11.0)
[2021-02-07 17:14] LABS: ALBUMIN 4.1 GM/DL (3.2-4.5)
[2021-02-07 17:16] LABS: CALCIUM 9.6 MG/DL (8.5-10.1)
[2021-02-07 17:19] LABS: BILIRUBIN,TOTAL 0.7 MG/DL (0.1-1.0)
[2021-02-07 17:20] LABS: CREATININE SERUM 1.47 MG/DL (0.60-1.30)
[2021-02-07 17:21] LABS: INR 1.2 (0.8-1.4); PROTHROMBIN TIME PATIENT 15.7 SEC (12.2-14.7)
--- NOTE | 2021-02-07 17:45 | ED GI ---
General Chief Complaint: Rect Problems Stated Complaint: RECTAL BLEEDING Nursing Triage Note: Pt ambulatory into ER with complaint of blood in stool. Pt states that he had flatulance about 20 minutes prior to arrival and thought he had messed himself. Pt found it to be blood. Pt has a history of blood cancer. Pt denies pain. Pt is seen here for the cancer. Source of Information: Patient Exam Limitations: No Limitations (CAROLINA SHELDON STUDENT) History of Present Illness Date Seen by Provider: Feb 07, 2021 Time Seen by Provider: 17:10 Initial Comments Pt presents to ED via POV with complaint of rectal bleeding. He states that at about 1630 today, he was doing some work around his house when he noticed that his shorts were wet and his noticed blood dripping down his leg. He states that his shorts was soaked with a moderate amount of blood, he wiped himself with tissues, and has not bled since. He had an episode of loose stool yesterday, but had a formed bowel movement today. He gets frequent colonoscopies, last one 2 years ago that showed 1 polyp and a hemorrhoid. He has had intermittent blood-streaked stools in the past, but nothing to the extent of the bleeding today. He has no complaints of abd pain or N/V. He has a history of polycystic kidney disease, polycythemia vera, gout, HTN. He denies associated symptoms of chest pain, SOB, lightheadedness, fevers/chills. Timing/Duration: 1 Hour Severity/Quality: Mild (mild blood per rectum, no complaints of pain/N/V) Location: Other (blood per rectum) Activities at Onset: Activity (working/lifting at home) Associated Symptoms: No Back Pain, No Chest Pain, No Fever/Chills, No Headache, No Heartburn, No Nausea/Vomiting, No Shortness of Air, No Swelling/Mass in Abdomen (CAROLINA SHELDON STUDENT) Allergies and Home Medications Allergies Coded Allergies: No Known Drug Allergies (Unverified , 08/23/18) Home Medications Allopurinol 100 Mg Tablet, 200 MG PO DAILY, (Reported) Bisoprolol Fumarate/Hctz 1 Each Tablet, 1 EACH PO DAILY, (Reported) Cholecalciferol (Vitamin D3) 2,000 Unit Capsule, 2,000 UNIT PO DAILY, (Reported) Lisinopril 10 Mg Tablet, 10 MG PO DAILY, (Reported) Patient Home Medication List Home Medication List Reviewed: Yes (CAROLINA SHELDON) Review of Systems Review of Systems Constitutional: No chills, No fever EENTM: No Blurred Vision, No Ear Pain, No Mouth Pain Respiratory: Denies Cough, Denies Shortness of Air Cardiovascular: Denies Chest Pain, Denies Edema, Denies Lightheadedness Gastrointestinal: Denies Abdominal Pain, Denies Blood Streaked Stools, Denies Constipated, Denies Nausea; Rectal Bleeding; Denies Vomiting Genitourinary: Denies Burning, Denies Drainage, Denies Frequency, Denies Flank Pain, Denies Hematuria Musculoskeletal: No back pain, No joint pain Skin: No change in color, No change in hair/nails (CAROLINA SHELDON) All Other Systems Reviewed Negative Unless Noted: Yes (CAROLINA SHELDON) Past Bdbevii-Slzmrt-Xorvrm Hx Patient Social History Tobacco Use?: No Use of E-Cig and/or Vaping dev: No Substance use?: No Alcohol Use?: No Pt feels they are or have been: No (CAROLINA SHELDON) Immunizations Up To Date Tetanus Booster (TDap): Unknown Influenza Vaccine Up-to-Date: No; Not Current Second COVID19 Vaccination [employer]: 09/07 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: [email or web address] (CAROLINA SHELDON) Seasonal Allergies Seasonal Allergies: No (CAROLINA SHELDON) Past Medical History Surgeries: Yes ( LITHOTRIPSY AND URETERAL STENT; ORAL/GUM SURGERY; COLONOSCOPIES) Renal Respiratory: No Cardiac: Yes Hypertension Neurological: No Sexually Transmitted Disease: No HIV/AIDS: No Genitourinary: Yes (LILTHOTRIPSY AND URETERAL STENT X 1) Kidney Stones, Polycystic Kidney Disease Gastrointestinal: Yes (DIVERTICULOSIS NOTED ON COLONSCOPY-NO ACUTE DIVERTIC ULITIS) Diverticulosis, Polyps Musculoskeletal: Yes Gout Endocrine: No HEENT: Yes (GLASSES; ORAL/GUM SURGERY) Loss of Vision: Bilateral Hearing Impairment: Denies Cancer: Yes (POLYCYTHEMIA VERA RUBRA) Did You Recieve Any Treatments: Yes What Type of Treatment Did You: Chemotherapy Psychosocial: No Integumentary: No Blood Disorders: Yes (POLYCYTHEMIA VERA RUBRA-[place] W/ THREAPEUTIC PHLEBOTOMY IN PAST, NOW ORAL MEDS) Adverse Reaction/Blood Tranf: No (MONALISACAROLINA TRUNG STUDENT) Family Medical History No Pertinent Family Hx (ZENAIDA SHELDONNY TRUNG STUDENT) Physical Exam Vital Signs Vital Signs - First Documented 02/07/21 16:03 Temp 36.2 Pulse 63 Resp 20 B/P (MAP) 139/78 (98) Pulse Ox 96 O2 Delivery Room Air (CARY NUÑEZ) Vital Signs Capillary Refill : Less Than 3 Seconds (CAROLINA SHELDON STUDENT) Height/Weight/BMI Height: 5'11.00" Weight: 215lbs. 0.0oz. 97.612419ed; 30.00 BMI Method:Stated General Appearance: WD/WN, no apparent distress HEENT: PERRL/EOMI, normal ENT inspection, pharynx normal Neck: non-tender, full range of motion, supple, normal inspection Respiratory: chest non-tender, lungs clear, normal breath sounds, no respiratory distress, no accessory muscle use Cardiovascular: normal peripheral pulses, regular rate, rhythm, no edema, no murmur Peripheral Pulses: 2+ Dorsalis Pedis (R), 2+ Left Dors-Pedis (L), 2+ Radial Pulses (R), 2+ Radial Pulses (L) Gastrointestinal: normal bowel sounds, non tender, soft Rectal: hemorrhoids; No tenderness Extremities: normal range of motion, non-tender, normal inspection, no pedal edema, normal capillary refill Back: normal inspection, no CVA tenderness, no vertebral tenderness Neurologic/Psychiatric: no motor/sensory deficits, alert, normal mood/affect, oriented x 3 Skin: normal color, warm/dry Lymphatic: no adenopathy (MONALISACAROLINA NINO STUDENT) Genital/Rectal: heme positive stool, other (Palpable nontender hemorrhoidal tissue just inside the rectal verge. No other mass. Prostate was not prominent) (CARY NUÑEZ) Progress/Results/Core Measures Results/Orders Lab Results Laboratory Tests Test 02/07/21 16:55 Range/Units White Blood Count 6.2 4.3-11.0 10^3/uL Red Blood Count 7.30 H 4.30-5.52 10^6/uL Hemoglobin 16.7 13.3-17.7 g/dL Hematocrit 56 H 40-54 % Mean Corpuscular Volume 77 L 80-99 fL Mean Corpuscular Hemoglobin 23 L 25-34 pg Mean Corpuscular Hemoglobin Concent 30 L 32-36 g/dL Red Cell Distribution Width 17.7 H 10.0-14.5 % Platelet Count 299 130-400 10^3/uL Mean Platelet Volume 9.8 9.0-12.2 fL Immature Granulocyte % (Auto) 0 % Neutrophils (%) (Auto) 72 42-75 % Lymphocytes (%) (Auto) 17 12-44 % Monocytes (%) (Auto) 7 0-12 % Eosinophils (%) (Auto) 2 0-10 % Basophils (%) (Auto) 1 0-10 % Neutrophils # (Auto) 4.5 1.8-7.8 10^3/uL Lymphocytes # (Auto) 1.1 1.0-4.0 10^3/uL Monocytes # (Auto) 0.4 0.0-1.0 10^3/uL Eosinophils # (Auto) 0.1 0.0-0.3 10^3/uL Basophils # (Auto) 0.1 0.0-0.1 10^3/uL Immature Granulocyte # (Auto) 0.0 0.0-0.1 10^3/uL Prothrombin Time 15.7 H 12.2-14.7 SEC INR Comment 1.2 0.8-1.4 Sodium Level 140 135-145 MMOL/L Potassium Level 4.0 3.6-5.0 MMOL/L Chloride Level 107 98-107 MMOL/L Carbon Dioxide Level 22 21-32 MMOL/L Anion Gap 11 5-14 MMOL/L Blood Urea Nitrogen 20 H 7-18 MG/DL Creatinine 1.47 H 0.60-1.30 MG/DL Estimat Glomerular Filtration Rate 47 BUN/Creatinine Ratio 14 Glucose Level 103 70-105 MG/DL Calcium Level 9.6 8.5-10.1 MG/DL Corrected Calcium 9.5 8.5-10.1 MG/DL Total Bilirubin 0.7 0.1-1.0 MG/DL Aspartate Amino Transf (AST/SGOT) 22 5-34 U/L Alanine Aminotransferase (ALT/SGPT) 25 0-55 U/L Alkaline Phosphatase 75 40-136 U/L Total Protein 7.0 6.4-8.2 GM/DL Albumin 4.1 3.2-4.5 GM/DL (CARY NUÑEZ) My Orders Orders - CARY NUÑEZ Cbc With Automated Diff (02/07/21 16:24) Comprehensive Metabolic Panel (02/07/21 16:24) Protime With Inr (02/07/21 16:24) Occult Blood Stool (02/07/21 16:47) (CARY NUÑEZ) Vital Signs/I&O 02/07/21 02/07/21 16:03 18:21 Temp 36.2 Pulse 63 68 Resp 20 20 B/P (MAP) 139/78 (98) 121/60 Pulse Ox 96 99 O2 Delivery Room Air Room Air (CARY NUÑEZ) Blood Pressure Mean: 98 Progress Progress Note : Time: 18:00 Progress Note I attest that I saw this patient alongside the medical student and agree with his documented history, physical exam and review of systems except as otherwise noted. Unsurprisingly because of his polycythemia vera he is in not approaching anemia. We can set him up with the general surgeon for colonoscopy and exam on the outpatient basis. (CARY NUÑEZ) Departure Impression Primary Impression: Bright red blood per rectum Disposition: HOME, SELF-CARE Condition: Stable Departure-Patient Inst. Decision time for Depature: 18:04 (CARY NUÑEZ) Referrals: ORTIZ BARRON MD (PCP/Family) Primary Care Physician THOMAS ZACARIAS DO Patient Instructions: Bloody Stools, Adult (DC) Add. Discharge Instructions: You have blood in your stool however probably owing to your polycythemia vera you do not have a significant bleed at this time. It needs to be checked out next week and I recommend you call Dr. Zacarias, general surgery or the GI doctor of your choice to have a colonoscopy set up to look for the source of the bleed. All discharge instructions reviewed with patient and/or family. Voiced understanding. Copy Copies To 1: THOMAS ZACARIAS DO CAROLINA SHELDON MED STUDENT Feb 07, 2021 17:45 CARY NUÑEZ Feb 07, 2021 18:05
[2021-02-07 18:21] VITALS: BP 121/60
== END 2021-02-07 18:15 | disposition home or self-care (01) ==
LOC: EDUNIT# 15:54 → ER 15:57
DX: K62.5 Hemorrhage of anus and rectum (principal); I10 Essential (primary) hypertension; M10.9 Gout, unspecified; Z79.899 Other long term (current) drug therapy
CPT/HCPCS: 36415; 80053; 85025; 85610; 99282

== ENCOUNTER 2021-02-12 06:34 | Outpatient (CLI) | payer MEDICARE, OTHER ==
[~2021-02-12] VITALS: Ht 180.3 cm; Wt 95.3 kg
[2021-02-13] MEDS ORDERED: CHOL400T29 PO (15:15)
[2021-02-13] MEDS ORDERED: ASPI-999 PO (15:15)
== END 2021-02-16 14:20 ==
LOC: PREOP 06:34
PROVIDERS: ATTEND Internal Medicine
DX: Z01.818 Encounter for other preprocedural examination (principal)

== ENCOUNTER 2021-02-20 08:54 | Day surgery (SDC) | payer MEDICARE, OTHER ==
--- NOTE | 2021-02-12 06:13 | HISTORY AND PHYSICAL ---
DATE OF SERVICE: COLONOSCOPY HISTORY AND PHYSICAL DATE OF ADMISSION: . HISTORY OF PRESENT ILLNESS: The patient is a 76-year-old white male, who while working in his garage when it was hot, had some onset of painless bright red blood per rectum. He reported that it was of significant volume. It prompted him to go to the emergency room, later that day on 02/07/2021. He denied weakness, but there was associated incontinence. He denied any problems with constipation. There, workup revealed evidence for hemorrhoids. It is not known whether this was an internal or external. His blood pressure is 139/78 with a heart rate of 63 and regular and hemoglobin was 16.7 with an MCV of 77. 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 He had been on Hydrea in the past, but became significantly anemic and for this reason, has been tolerating iron deficiency, but this is one of the higher blood count that he has actually had. He also has a history of polycystic kidney disease, autosomal dominant with stable stage III chronic renal disease. He last underwent colonoscopy over two and a half years ago, at which time a 3-year recommendation was made due to colon polyps. Previous to this, he had noted no melena or bright red blood per rectum. Denied change in appetite, abdominal pain or constipation. PHYSICAL EXAMINATION: GENERAL: Reveals a white male, did not appear to be in acute distress, noting that he is still having a small amount of intermittent rectal bleeding, but this had diminished significantly since its onset on . VITAL SIGNS: Blood pressure 130/80, weight was down 3.6 pounds to 210.4. HEENT: Unremarkable. Sclerae nonicteric. CHEST: Clear. CARDIOVASCULAR: Reveals a regular rate and rhythm without significant murmur, S3 or S4. ABDOMEN: Soft, supple without mass, organomegaly or tenderness. RECTAL: Deferred at the time of colonoscopy. ASSESSMENT AND PLAN: The patient is being set up for diagnostic colonoscopy for evaluation of bright red blood per rectum with a past history of colon polyps, see above. Prep instructions with Garcia-Tab were given and questions were answered. Job ID: [id number] DocumentID: [id number] Dictated Date: 02/09/2021 15:31:31 Electric Shaver Mechanic Date: 02/09/2021 16:37:18 Dictated By: ORTIZ BARRON MD
[2021-02-20] VITALS (13 sets, daily range): BP systolic 100–139; BP diastolic 59–79
[~2021-02-20] VITALS: Ht 180.3 cm; Wt 95.3 kg
[~2021-02-20 08:54] MED LIST changes: +ASPI-999 PO; +CHOL400T29 PO
[2021-02-20] MEDS ORDERED: D5 LR IV SOLUTION 1,000 ML IV STA (09:01)
--- NOTE | 2021-02-20 09:11 | Pre-Op Note & Conscious Sedat ---
Pre-Operative Progress Note H&P Reviewed The H&P was reviewed, patient examined and no changes noted. Date H&P Reviewed: Feb 20, 2021 Time H&P Reviewed: 09:11 Conscious Sedation Pre-Proced ASA Score 2 For ASA 3 and 4: Consider anesthesia and medical clearance. Also, for patients with a history of failed moderate sedation consider anesthesia. Airway Lungs Heart ASA score ASA 1: a normal healthy patient ASA 2: a patient with a mild systemic disease (mid diabetes, controlled hypertension, obesity ASA 3: a patient with a severe systemic disease that limits activity (angina, COPD, prior Myocardial infarction) ASA 4: a patient with an incapacitating disease that is a constant threat to life (CHF, renal failure) ASA 5: a moribund patient not expected to survive 24 hrs. (ruptured aneurysm) ASA 6: a declared brain- patient whose organs are being harvested. For emergent operations, add the letter E after the classification Mallampati Classification Grade 2 Sedation Plan Analgesia, Amnesia, Plan communicated to team members, Discussed options with patient/fam, Discussed risks with patient/fam The patient is an appropriate candidate to undergo the planned procedure, sedation, and anesthesia. The patient immediately re-assessed prior to indication. ORTIZ BARRON MD Feb 20, 2021 09:11
[2021-02-20] MEDS ORDERED: MIDAZOLAM 5 MG/5 ML (VERSED) VIAL IV ONE (09:15)
[2021-02-20] MEDS ORDERED: LIDOCAINE JELLY 2% 6 ML SYRINGE MM PRN (09:15)
[2021-02-20] MEDS ORDERED: fentaNYL INJ 100 MCG/2 ML AMP IVP ONE (09:15)
[2021-02-20] MEDS ORDERED: D5 LR IV SOLUTION 1,000 ML IV ONE (09:24)
--- NOTE | 2021-02-20 16:54 | OPERATIVE REPORT ---
DATE OF SERVICE: COLONOSCOPY SUMMARY INDICATION FOR THE PROCEDURE: Rectal bleeding. DESCRIPTION OF PROCEDURE: The patient was placed in the left lateral decubitus position. Prior to undergoing colonoscopy, digital rectal evaluation was performed. Anal sphincter tone was normal and the perianal reflexes intact. Prostate is mildly enlarged, anodular and nontender to digital inspection. No abnormalities were noted on digital inspection of anal canal or distal rectal vault. The colonoscope was then inserted into the rectum and under direct visualization advanced to cecum. The cecum was identified by identification of the ileocecal valve and cecal strap. Photographic documentation was obtained. Careful inspection was made as colonoscope withdrawn. FINDINGS: There was no evidence for internal or external hemorrhoids and the rectum was unremarkable. No definitive bleeding sites were identified. Several small sigmoid diverticulum were present without evidence for diverticulitis. There was no blood noted on today's colonoscopy. The descending colon, splenic flexure, transverse colon, hepatic flexure, ascending colon and cecum were unremarkable. ASSESSMENT: Essentially normal colonoscopy to the cecum under good prep conditions. No potential bleeding sites were identified. The patient did have 2 small sigmoid diverticulum. The patient was reassured. Job ID: [id number] DocumentID: [id number] Dictated Date: 02/20/2021 11:12:03 Fire Safety Manager Date: 02/20/2021 16:53:29 Dictated By: ORTIZ BARRON MD
== END 2021-02-20 11:45 ==
LOC: ENDO 08:54
PROVIDERS: ATTEND Internal Medicine
DX: K62.5 Hemorrhage of anus and rectum (principal); K57.30 Diverticulosis of large intestine without perforation or abscess without bleeding; D50.9 Iron deficiency anemia, unspecified; Z86.010 Personal history of colon polyps

== ENCOUNTER 2021-03-12 09:54 | Outpatient (RCR) | payer MEDICARE, OTHER ==
[2021-02-09 09:04] LABS: BASOPHILS # (AUTO) 0.1 10^3/uL (0.0-0.1); BASOPHILS % (AUTO) 2 % (0-10); EOSINOPHILS # (AUTO) 0.2 10^3/uL (0.0-0.3); EOSINOPHILS % (AUTO) 3 % (0-10); HEMATOCRIT 55 % (40-54); HEMOGLOBIN 16.6 g/dL (13.3-17.7); LYMPHOCYTES # (AUTO) 1.1 10^3/uL (1.0-4.0); LYMPHOCYTES % (AUTO) 18 % (12-44); MEAN CORPUSCULAR HEMOGLOBIN 23 pg (25-34); MEAN CORPUSCULAR HGB CONC 30 g/dL (32-36); MEAN CORPUSCULAR VOLUME 77 fL (80-99); MEAN PLATELET VOLUME 9.8 fL (9.0-12.2); MONOCYTES # (AUTO) 0.5 10^3/uL (0.0-1.0); MONOCYTES % (AUTO) 7 % (0-12); NEUTROPHILS # (AUTO) 4.3 10^3/uL (1.8-7.8); NEUTROPHILS % (AUTO) 70 % (42-75); PLATELET COUNT 270 10^3/uL (130-400); WHITE BLOOD COUNT 6.2 10^3/uL (4.3-11.0)
[2021-02-09 09:14] LABS: ALBUMIN 4.1 GM/DL (3.2-4.5); BILIRUBIN,TOTAL 0.7 MG/DL (0.1-1.0); CALCIUM 9.5 MG/DL (8.5-10.1); CREATININE SERUM 1.51 MG/DL (0.60-1.30); POTASSIUM 3.7 MMOL/L (3.6-5.0)
[2021-03-10 09:47] LABS: BASOPHILS # (AUTO) 0.1 10^3/uL (0.0-0.1); BASOPHILS % (AUTO) 2 % (0-10); EOSINOPHILS # (AUTO) 0.1 10^3/uL (0.0-0.3); EOSINOPHILS % (AUTO) 2 % (0-10); HEMATOCRIT 55 % (40-54); HEMOGLOBIN 16.3 g/dL (13.3-17.7); LYMPHOCYTES # (AUTO) 0.8 10^3/uL (1.0-4.0); LYMPHOCYTES % (AUTO) 16 % (12-44); MEAN CORPUSCULAR HEMOGLOBIN 23 pg (25-34); MEAN CORPUSCULAR HGB CONC 30 g/dL (32-36); MEAN CORPUSCULAR VOLUME 77 fL (80-99); MEAN PLATELET VOLUME 9.7 fL (9.0-12.2); MONOCYTES # (AUTO) 0.3 10^3/uL (0.0-1.0); MONOCYTES % (AUTO) 7 % (0-12); NEUTROPHILS # (AUTO) 3.7 10^3/uL (1.8-7.8); NEUTROPHILS % (AUTO) 73 % (42-75); PLATELET COUNT 279 10^3/uL (130-400)
[2021-03-10 10:17] LABS: BILIRUBIN,TOTAL 0.9 MG/DL (0.1-1.0); CALCIUM 9.5 MG/DL (8.5-10.1); CREATININE SERUM 1.44 MG/DL (0.60-1.30); POTASSIUM 4.2 MMOL/L (3.6-5.0); TOTAL PROTEIN 6.9 GM/DL (6.4-8.2)
== END 2021-05-10 | disposition home or self-care (01) ==
LOC: ONC 09:54
PROVIDERS: ATTEND Internal Medicine Hematology & Oncology
DX: D45 Polycythemia vera (principal); D50.9 Iron deficiency anemia, unspecified; I12.9 Hypertensive chronic kidney disease with stage 1 through stage 4 chronic kidney disease, or unspecified chronic kidney disease; N18.9 Chronic kidney disease, unspecified; D63.1 Anemia in chronic kidney disease; Q61.3 Polycystic kidney, unspecified; Z79.899 Other long term (current) drug therapy
CPT/HCPCS: 80053; 82728; 83540; 83550; 85025; 99213

== ENCOUNTER 2021-05-21 10:00 | Outpatient (RCR) | payer MEDICARE, OTHER ==
[2021-05-18 09:40] LABS: BASOPHILS # (AUTO) 0.1 10^3/uL (0.0-0.1); BASOPHILS % (AUTO) 2 % (0-10); EOSINOPHILS # (AUTO) 0.2 10^3/uL (0.0-0.3); EOSINOPHILS % (AUTO) 3 % (0-10); HEMATOCRIT 56 % (40-54); HEMOGLOBIN 16.5 g/dL (13.3-17.7); LYMPHOCYTES # (AUTO) 0.9 10^3/uL (1.0-4.0); LYMPHOCYTES % (AUTO) 17 % (12-44); MEAN CORPUSCULAR HEMOGLOBIN 22 pg (25-34); MEAN CORPUSCULAR HGB CONC 30 g/dL (32-36); MEAN CORPUSCULAR VOLUME 74 fL (80-99); MEAN PLATELET VOLUME 9.7 fL (9.0-12.2); MONOCYTES # (AUTO) 0.4 10^3/uL (0.0-1.0); MONOCYTES % (AUTO) 8 % (0-12); NEUTROPHILS # (AUTO) 3.8 10^3/uL (1.8-7.8); NEUTROPHILS % (AUTO) 70 % (42-75); PLATELET COUNT 271 10^3/uL (130-400); WHITE BLOOD COUNT 5.4 10^3/uL (4.3-11.0)
[2021-05-18 10:02] LABS: BILIRUBIN,TOTAL 0.7 MG/DL (0.1-1.0); CALCIUM 9.3 MG/DL (8.5-10.1); CREATININE SERUM 1.38 MG/DL (0.60-1.30); POTASSIUM 3.9 MMOL/L (3.6-5.0); TOTAL PROTEIN 6.8 GM/DL (6.4-8.2)
== END 2021-06-19 | disposition home or self-care (01) ==
LOC: ONC 10:00
PROVIDERS: ATTEND Internal Medicine Hematology & Oncology
DX: D45 Polycythemia vera (principal); D50.9 Iron deficiency anemia, unspecified; Q61.3 Polycystic kidney, unspecified; I10 Essential (primary) hypertension; E66.9 Obesity, unspecified; Z79.899 Other long term (current) drug therapy
CPT/HCPCS: 80053; 82728; 83540; 83550; 85025; 99213

== ENCOUNTER 2021-06-25 09:25 | Outpatient (RCR) | payer MEDICARE, OTHER ==
[2021-06-22 09:28] LABS: BASOPHILS # (AUTO) 0.1 10^3/uL (0.0-0.1); BASOPHILS % (AUTO) 2 % (0-10); EOSINOPHILS # (AUTO) 0.2 10^3/uL (0.0-0.3); EOSINOPHILS % (AUTO) 3 % (0-10); HEMATOCRIT 58 % (40-54); HEMOGLOBIN 16.8 g/dL (13.3-17.7); LYMPHOCYTES # (AUTO) 0.9 10^3/uL (1.0-4.0); LYMPHOCYTES % (AUTO) 16 % (12-44); MEAN CORPUSCULAR HEMOGLOBIN 22 pg (25-34); MEAN CORPUSCULAR HGB CONC 29 g/dL (32-36); MEAN CORPUSCULAR VOLUME 75 fL (80-99); MEAN PLATELET VOLUME 9.9 fL (9.0-12.2); MONOCYTES # (AUTO) 0.4 10^3/uL (0.0-1.0); MONOCYTES % (AUTO) 7 % (0-12); NEUTROPHILS # (AUTO) 4.2 10^3/uL (1.8-7.8); NEUTROPHILS % (AUTO) 72 % (42-75); PLATELET COUNT 251 10^3/uL (130-400); WHITE BLOOD COUNT 5.9 10^3/uL (4.3-11.0)
[2021-06-22 09:52] LABS: BILIRUBIN,TOTAL 0.9 MG/DL (0.1-1.0); CALCIUM 9.6 MG/DL (8.5-10.1); CREATININE SERUM 1.44 MG/DL (0.60-1.30); POTASSIUM 4.2 MMOL/L (3.6-5.0); TOTAL PROTEIN 6.7 GM/DL (6.4-8.2)
== END 2021-07-20 | disposition home or self-care (01) ==
LOC: ONC 09:25
PROVIDERS: ATTEND Internal Medicine Hematology & Oncology
DX: D45 Polycythemia vera (principal); D50.9 Iron deficiency anemia, unspecified; Q61.3 Polycystic kidney, unspecified; I10 Essential (primary) hypertension; E66.9 Obesity, unspecified; Z79.899 Other long term (current) drug therapy
CPT/HCPCS: 80053; 82728; 83540; 83550; 85025; 99195; 99213

== ENCOUNTER 2021-08-27 13:26 | Outpatient (RCR) | payer MEDICARE, OTHER ==
[2021-08-21 08:35] LABS: BASOPHILS # (AUTO) 0.1 10^3/uL (0.0-0.1); BASOPHILS % (AUTO) 2 % (0-10); EOSINOPHILS # (AUTO) 0.2 10^3/uL (0.0-0.3); EOSINOPHILS % (AUTO) 3 % (0-10); HEMATOCRIT 56 % (40-54); HEMOGLOBIN 16.2 g/dL (13.3-17.7); LYMPHOCYTES # (AUTO) 1.1 10^3/uL (1.0-4.0); LYMPHOCYTES % (AUTO) 20 % (12-44); MEAN CORPUSCULAR HEMOGLOBIN 22 pg (25-34); MEAN CORPUSCULAR HGB CONC 29 g/dL (32-36); MEAN CORPUSCULAR VOLUME 75 fL (80-99); MEAN PLATELET VOLUME 9.5 fL (9.0-12.2); MONOCYTES # (AUTO) 0.5 10^3/uL (0.0-1.0); MONOCYTES % (AUTO) 8 % (0-12); NEUTROPHILS # (AUTO) 3.9 10^3/uL (1.8-7.8); NEUTROPHILS % (AUTO) 67 % (42-75); PLATELET COUNT 252 10^3/uL (130-400); WHITE BLOOD COUNT 5.8 10^3/uL (4.3-11.0)
[2021-08-21 09:15] LABS: BILIRUBIN,TOTAL 0.7 MG/DL (0.1-1.0); CREATININE SERUM 1.39 MG/DL (0.60-1.30); POTASSIUM 4.1 MMOL/L (3.6-5.0); TOTAL PROTEIN 6.5 GM/DL (6.4-8.2)
== END 2021-09-17 | disposition home or self-care (01) ==
LOC: ONC 13:26
PROVIDERS: ATTEND Internal Medicine Hematology & Oncology
DX: Z45.2 Encounter for adjustment and management of vascular access device (principal); D45 Polycythemia vera; D50.9 Iron deficiency anemia, unspecified; Q61.3 Polycystic kidney, unspecified; I10 Essential (primary) hypertension; E66.9 Obesity, unspecified; Z79.899 Other long term (current) drug therapy
CPT/HCPCS: 36415; 80053; 82728; 83540; 83550; 85025; 99213

== ENCOUNTER 2021-10-28 09:26 | Outpatient (RCR) | payer MEDICARE, OTHER ==
[2021-10-23 08:31] LABS: BASOPHILS # (AUTO) 0.1 10^3/uL (0.0-0.1); BASOPHILS % (AUTO) 2 % (0-10); EOSINOPHILS # (AUTO) 0.2 10^3/uL (0.0-0.3); EOSINOPHILS % (AUTO) 3 % (0-10); HEMATOCRIT 55 % (40-54); HEMOGLOBIN 15.8 g/dL (13.3-17.7); LYMPHOCYTES # (AUTO) 0.9 10^3/uL (1.0-4.0); LYMPHOCYTES % (AUTO) 15 % (12-44); MEAN CORPUSCULAR HEMOGLOBIN 21 pg (25-34); MEAN CORPUSCULAR HGB CONC 29 g/dL (32-36); MEAN CORPUSCULAR VOLUME 74 fL (80-99); MEAN PLATELET VOLUME 9.3 fL (9.0-12.2); MONOCYTES # (AUTO) 0.4 10^3/uL (0.0-1.0); MONOCYTES % (AUTO) 7 % (0-12); NEUTROPHILS # (AUTO) 4.1 10^3/uL (1.8-7.8); NEUTROPHILS % (AUTO) 73 % (42-75); PLATELET COUNT 274 10^3/uL (130-400); WHITE BLOOD COUNT 5.6 10^3/uL (4.3-11.0)
[2021-10-23 08:49] LABS: ALBUMIN 4.1 GM/DL (3.2-4.5); BILIRUBIN,TOTAL 0.9 MG/DL (0.1-1.0); CALCIUM 9.3 MG/DL (8.5-10.1); CREATININE SERUM 1.43 MG/DL (0.60-1.30); POTASSIUM 4.1 MMOL/L (3.6-5.0); TOTAL PROTEIN 6.7 GM/DL (6.4-8.2)
== END 2021-11-17 | disposition home or self-care (01) ==
LOC: ONC 09:26
PROVIDERS: ATTEND Internal Medicine Hematology & Oncology
DX: D45 Polycythemia vera (principal); D50.9 Iron deficiency anemia, unspecified; Q61.3 Polycystic kidney, unspecified; E66.9 Obesity, unspecified; I12.9 Hypertensive chronic kidney disease with stage 1 through stage 4 chronic kidney disease, or unspecified chronic kidney disease; D63.1 Anemia in chronic kidney disease; N18.9 Chronic kidney disease, unspecified; Z79.899 Other long term (current) drug therapy
CPT/HCPCS: 36415; 80053; 82728; 83540; 83550; 85025

== ENCOUNTER 2021-12-31 09:22 | Outpatient (RCR) | payer MEDICARE, OTHER ==
[2021-12-25 08:51] LABS: BASOPHILS # (AUTO) 0.1 10^3/uL (0.0-0.1); BASOPHILS % (AUTO) 2 % (0-10); EOSINOPHILS # (AUTO) 0.2 10^3/uL (0.0-0.3); EOSINOPHILS % (AUTO) 3 % (0-10); HEMATOCRIT 53 % (40-54); HEMOGLOBIN 15.4 g/dL (13.3-17.7); LYMPHOCYTES # (AUTO) 0.8 10^3/uL (1.0-4.0); LYMPHOCYTES % (AUTO) 14 % (12-44); MEAN CORPUSCULAR HEMOGLOBIN 21 pg (25-34); MEAN CORPUSCULAR HGB CONC 29 g/dL (32-36); MEAN CORPUSCULAR VOLUME 72 fL (80-99); MEAN PLATELET VOLUME 9.4 fL (9.0-12.2); MONOCYTES # (AUTO) 0.4 10^3/uL (0.0-1.0); MONOCYTES % (AUTO) 7 % (0-12); NEUTROPHILS # (AUTO) 4.2 10^3/uL (1.8-7.8); NEUTROPHILS % (AUTO) 74 % (42-75); PLATELET COUNT 270 10^3/uL (130-400); WHITE BLOOD COUNT 5.7 10^3/uL (4.3-11.0)
[2021-12-25 09:15] LABS: BILIRUBIN,TOTAL 0.8 MG/DL (0.1-1.0); CALCIUM 9.3 MG/DL (8.5-10.1); CREATININE SERUM 1.55 MG/DL (0.60-1.30); POTASSIUM 4.5 MMOL/L (3.6-5.0); TOTAL PROTEIN 6.6 GM/DL (6.4-8.2)
== END 2022-01-17 | disposition home or self-care (01) ==
LOC: ONC 09:22
PROVIDERS: ATTEND Internal Medicine Hematology & Oncology
DX: D45 Polycythemia vera (principal); D50.9 Iron deficiency anemia, unspecified; Q61.3 Polycystic kidney, unspecified; E66.9 Obesity, unspecified; I12.9 Hypertensive chronic kidney disease with stage 1 through stage 4 chronic kidney disease, or unspecified chronic kidney disease; D63.1 Anemia in chronic kidney disease; N18.9 Chronic kidney disease, unspecified; Z79.899 Other long term (current) drug therapy
CPT/HCPCS: 80053; 82728; 83540; 83550; 85025; G0463; 36415; 99213

== ENCOUNTER 2022-03-04 08:54 | Outpatient (RCR) | payer MEDICARE, OTHER ==
[2022-02-24 09:57] LABS: BASOPHILS # (AUTO) 0.1 10^3/uL (0.0-0.1); BASOPHILS % (AUTO) 2 % (0-10); EOSINOPHILS # (AUTO) 0.2 10^3/uL (0.0-0.3); EOSINOPHILS % (AUTO) 3 % (0-10); HEMATOCRIT 54 % (40-54); HEMOGLOBIN 15.3 g/dL (13.3-17.7); LYMPHOCYTES # (AUTO) 0.8 10^3/uL (1.0-4.0); LYMPHOCYTES % (AUTO) 13 % (12-44); MEAN CORPUSCULAR HEMOGLOBIN 20 pg (25-34); MEAN CORPUSCULAR HGB CONC 29 g/dL (32-36); MEAN CORPUSCULAR VOLUME 71 fL (80-99); MEAN PLATELET VOLUME 9.3 fL (9.0-12.2); MONOCYTES # (AUTO) 0.4 10^3/uL (0.0-1.0); MONOCYTES % (AUTO) 6 % (0-12); NEUTROPHILS # (AUTO) 4.5 10^3/uL (1.8-7.8); NEUTROPHILS % (AUTO) 76 % (42-75); PLATELET COUNT 291 10^3/uL (130-400); WHITE BLOOD COUNT 5.9 10^3/uL (4.3-11.0)
[2022-02-24 10:17] LABS: BILIRUBIN,TOTAL 0.8 MG/DL (0.1-1.0); CALCIUM 9.3 MG/DL (8.5-10.1); CREATININE SERUM 1.48 MG/DL (0.60-1.30); POTASSIUM 4.1 MMOL/L (3.6-5.0); TOTAL PROTEIN 7.1 GM/DL (6.4-8.2)
== END 2022-03-19 | disposition home or self-care (01) ==
LOC: ONC 08:54
PROVIDERS: ATTEND Internal Medicine Hematology & Oncology
DX: D45 Polycythemia vera (principal); I10 Essential (primary) hypertension; E66.9 Obesity, unspecified; Z79.899 Other long term (current) drug therapy
CPT/HCPCS: 36415; 80053; 82728; 83540; 83550; 85025; 99213

== ENCOUNTER 2022-04-29 09:38 | Outpatient (RCR) | payer MEDICARE, OTHER | END 2022-05-19 | disposition home or self-care (01) | LOC: LAB 09:38 | PROVIDERS: ATTEND Internal Medicine | DX: R97.20 Elevated prostate specific antigen [PSA] (principal); Z12.5 Encounter for screening for malignant neoplasm of prostate | CPT/HCPCS: 36415; 84153 ==

== ENCOUNTER 2022-05-06 08:39 | Outpatient (RCR) | payer MEDICARE, OTHER ==
[2022-04-29 09:47] LABS: BASOPHILS # (AUTO) 0.1 10^3/uL (0.0-0.1); BASOPHILS % (AUTO) 2 % (0-10); EOSINOPHILS # (AUTO) 0.2 10^3/uL (0.0-0.3); EOSINOPHILS % (AUTO) 3 % (0-10); HEMATOCRIT 54 % (40-54); HEMOGLOBIN 15.7 g/dL (13.3-17.7); LYMPHOCYTES # (AUTO) 0.7 10^3/uL (1.0-4.0); LYMPHOCYTES % (AUTO) 12 % (12-44); MEAN CORPUSCULAR HEMOGLOBIN 21 pg (25-34); MEAN CORPUSCULAR HGB CONC 29 g/dL (32-36); MEAN CORPUSCULAR VOLUME 71 fL (80-99); MEAN PLATELET VOLUME 9.8 fL (9.0-12.2); MONOCYTES # (AUTO) 0.3 10^3/uL (0.0-1.0); MONOCYTES % (AUTO) 5 % (0-12); NEUTROPHILS # (AUTO) 4.4 10^3/uL (1.8-7.8); NEUTROPHILS % (AUTO) 78 % (42-75); PLATELET COUNT 304 10^3/uL (130-400); WHITE BLOOD COUNT 5.7 10^3/uL (4.3-11.0)
[2022-04-29 10:12] LABS: BILIRUBIN,TOTAL 0.7 MG/DL (0.1-1.0); CALCIUM 9.2 MG/DL (8.5-10.1); CREATININE SERUM 1.67 MG/DL (0.60-1.30); POTASSIUM 3.8 MMOL/L (3.6-5.0); TOTAL PROTEIN 6.8 GM/DL (6.4-8.2)
== END 2022-05-19 | disposition home or self-care (01) ==
LOC: ONC 08:39
PROVIDERS: ATTEND Internal Medicine Hematology & Oncology
DX: D45 Polycythemia vera (principal); I10 Essential (primary) hypertension; E66.9 Obesity, unspecified; Z79.899 Other long term (current) drug therapy
CPT/HCPCS: 36415; 80053; 82728; 83540; 83550; 85025; 99213

== ENCOUNTER 2022-07-08 09:04 | Outpatient (RCR) | payer MEDICARE, OTHER ==
[2022-07-02 11:42] LABS: BASOPHILS % (AUTO) 1 % (0-10); EOSINOPHILS # (AUTO) 0.1 10^3/uL (0.0-0.3); EOSINOPHILS % (AUTO) 2 % (0-10); HEMATOCRIT 57 % (40-54); HEMOGLOBIN 16.2 g/dL (13.3-17.7); LYMPHOCYTES # (AUTO) 0.6 10^3/uL (1.0-4.0); LYMPHOCYTES % (AUTO) 9 % (12-44); MEAN CORPUSCULAR HEMOGLOBIN 20 pg (25-34); MEAN CORPUSCULAR HGB CONC 29 g/dL (32-36); MEAN CORPUSCULAR VOLUME 71 fL (80-99); MEAN PLATELET VOLUME 9.7 fL (9.0-12.2); MONOCYTES # (AUTO) 0.4 10^3/uL (0.0-1.0); MONOCYTES % (AUTO) 5 % (0-12); NEUTROPHILS # (AUTO) 6.1 10^3/uL (1.8-7.8); NEUTROPHILS % (AUTO) 84 % (42-75); PLATELET COUNT 277 10^3/uL (130-400); WHITE BLOOD COUNT 7.3 10^3/uL (4.3-11.0)
[2022-07-02 12:16] LABS: ALBUMIN 4.2 GM/DL (3.2-4.5); BILIRUBIN,TOTAL 1.5 MG/DL (0.1-1.0); CREATININE SERUM 1.52 MG/DL (0.60-1.30); POTASSIUM 3.9 MMOL/L (3.6-5.0); TOTAL PROTEIN 6.9 GM/DL (6.4-8.2)
== END 2022-07-20 | disposition home or self-care (01) ==
LOC: ONC 09:04
PROVIDERS: ATTEND Internal Medicine Hematology & Oncology
DX: D45 Polycythemia vera (principal); E66.9 Obesity, unspecified; D50.9 Iron deficiency anemia, unspecified; I12.9 Hypertensive chronic kidney disease with stage 1 through stage 4 chronic kidney disease, or unspecified chronic kidney disease; N18.9 Chronic kidney disease, unspecified; D63.1 Anemia in chronic kidney disease; N28.1 Cyst of kidney, acquired; Z79.899 Other long term (current) drug therapy
CPT/HCPCS: 36415; 80053; 82728; 83540; 83550; 85025; 99213

== ENCOUNTER 2022-08-05 09:43 | Outpatient (RCR) | payer MEDICARE, OTHER ==
[2022-07-30 12:42] LABS: ALBUMIN 4.1 GM/DL (3.2-4.5); BILIRUBIN,TOTAL 0.8 MG/DL (0.1-1.0); CALCIUM 9.3 MG/DL (8.5-10.1); CREATININE SERUM 1.33 MG/DL (0.60-1.30); POTASSIUM 3.9 MMOL/L (3.6-5.0); TOTAL PROTEIN 6.8 GM/DL (6.4-8.2)
[2022-08-05 09:51] LABS: BASOPHILS # (AUTO) 0.1 10^3/uL (0.0-0.1); BASOPHILS % (AUTO) 2 % (0-10); EOSINOPHILS # (AUTO) 0.2 10^3/uL (0.0-0.3); EOSINOPHILS % (AUTO) 3 % (0-10); HEMATOCRIT 55 % (40-54); HEMOGLOBIN 15.7 g/dL (13.3-17.7); LYMPHOCYTES % (AUTO) 14 % (12-44); MEAN CORPUSCULAR HEMOGLOBIN 20 pg (25-34); MEAN CORPUSCULAR HGB CONC 29 g/dL (32-36); MEAN CORPUSCULAR VOLUME 70 fL (80-99); MEAN PLATELET VOLUME 9.9 fL (9.0-12.2); MONOCYTES # (AUTO) 0.5 10^3/uL (0.0-1.0); MONOCYTES % (AUTO) 7 % (0-12); NEUTROPHILS # (AUTO) 5.2 10^3/uL (1.8-7.8); NEUTROPHILS % (AUTO) 74 % (42-75); PLATELET COUNT 337 10^3/uL (130-400)
== END 2022-08-17 | disposition home or self-care (01) ==
LOC: ONC 09:43
PROVIDERS: ATTEND Internal Medicine Hematology & Oncology
DX: D45 Polycythemia vera (principal); E66.9 Obesity, unspecified; D50.9 Iron deficiency anemia, unspecified; I12.9 Hypertensive chronic kidney disease with stage 1 through stage 4 chronic kidney disease, or unspecified chronic kidney disease; N18.9 Chronic kidney disease, unspecified; D63.1 Anemia in chronic kidney disease; N28.1 Cyst of kidney, acquired; Z79.899 Other long term (current) drug therapy
CPT/HCPCS: 36415; 80053; 82728; 83540; 83550; 85025

== ENCOUNTER 2022-09-02 08:54 | Outpatient (RCR) | payer MEDICARE, OTHER ==
[2022-08-26 11:59] LABS: BASOPHILS # (AUTO) 0.2 10^3/uL (0.0-0.1); BASOPHILS % (AUTO) 2 % (0-10); EOSINOPHILS # (AUTO) 0.2 10^3/uL (0.0-0.3); EOSINOPHILS % (AUTO) 3 % (0-10); HEMATOCRIT 54 % (40-54); HEMOGLOBIN 15.6 g/dL (13.3-17.7); LYMPHOCYTES % (AUTO) 15 % (12-44); MEAN CORPUSCULAR HEMOGLOBIN 20 pg (25-34); MEAN CORPUSCULAR HGB CONC 29 g/dL (32-36); MEAN CORPUSCULAR VOLUME 70 fL (80-99); MEAN PLATELET VOLUME 9.6 fL (9.0-12.2); MONOCYTES # (AUTO) 0.4 10^3/uL (0.0-1.0); MONOCYTES % (AUTO) 6 % (0-12); NEUTROPHILS # (AUTO) 5.2 10^3/uL (1.8-7.8); NEUTROPHILS % (AUTO) 74 % (42-75); PLATELET COUNT 311 10^3/uL (130-400)
[2022-08-26 12:28] LABS: ALBUMIN 4.2 GM/DL (3.2-4.5); CALCIUM 9.5 MG/DL (8.5-10.1); CREATININE SERUM 1.45 MG/DL (0.60-1.30); TOTAL PROTEIN 6.8 GM/DL (6.4-8.2)
== END 2022-09-17 | disposition home or self-care (01) ==
LOC: ONC 08:54
PROVIDERS: ATTEND Internal Medicine Hematology & Oncology
DX: D45 Polycythemia vera (principal); E66.9 Obesity, unspecified; D50.9 Iron deficiency anemia, unspecified; I12.9 Hypertensive chronic kidney disease with stage 1 through stage 4 chronic kidney disease, or unspecified chronic kidney disease; N18.9 Chronic kidney disease, unspecified; D63.1 Anemia in chronic kidney disease; N28.1 Cyst of kidney, acquired; Z79.899 Other long term (current) drug therapy
CPT/HCPCS: 36415; 80053; 82728; 83540; 83550; 85025

== ENCOUNTER 2022-09-30 09:04 | Outpatient (RCR) | payer MEDICARE, OTHER ==
[2022-09-23 11:40] LABS: BASOPHILS # (AUTO) 0.2 10^3/uL (0.0-0.1); BASOPHILS % (AUTO) 3 % (0-10); EOSINOPHILS # (AUTO) 0.2 10^3/uL (0.0-0.3); EOSINOPHILS % (AUTO) 3 % (0-10); HEMATOCRIT 56 % (40-54); LYMPHOCYTES # (AUTO) 0.7 10^3/uL (1.0-4.0); LYMPHOCYTES % (AUTO) 10 % (12-44); MEAN CORPUSCULAR HEMOGLOBIN 20 pg (25-34); MEAN CORPUSCULAR HGB CONC 29 g/dL (32-36); MEAN CORPUSCULAR VOLUME 69 fL (80-99); MEAN PLATELET VOLUME 9.2 fL (9.0-12.2); MONOCYTES # (AUTO) 0.4 10^3/uL (0.0-1.0); MONOCYTES % (AUTO) 5 % (0-12); NEUTROPHILS # (AUTO) 5.7 10^3/uL (1.8-7.8); NEUTROPHILS % (AUTO) 80 % (42-75); PLATELET COUNT 310 10^3/uL (130-400); WHITE BLOOD COUNT 7.2 10^3/uL (4.3-11.0)
[2022-09-23 12:00] LABS: ALBUMIN 4.3 GM/DL (3.2-4.5); BILIRUBIN,TOTAL 1.1 MG/DL (0.1-1.0); CALCIUM 9.6 MG/DL (8.5-10.1); CREATININE SERUM 1.37 MG/DL (0.60-1.30); POTASSIUM 3.7 MMOL/L (3.6-5.0)
== END 2022-10-17 | disposition home or self-care (01) ==
LOC: ONC 09:04
PROVIDERS: ATTEND Internal Medicine Hematology & Oncology
DX: D45 Polycythemia vera (principal); E66.9 Obesity, unspecified; D50.9 Iron deficiency anemia, unspecified; I12.9 Hypertensive chronic kidney disease with stage 1 through stage 4 chronic kidney disease, or unspecified chronic kidney disease; N18.9 Chronic kidney disease, unspecified; D63.1 Anemia in chronic kidney disease; N28.1 Cyst of kidney, acquired; Z79.899 Other long term (current) drug therapy
CPT/HCPCS: 36415; 80053; 82728; 83540; 83550; 85025

== ENCOUNTER 2022-11-25 09:07 | Outpatient (RCR) | payer MEDICARE, OTHER ==
[2022-11-18 09:44] LABS: BASOPHILS # (AUTO) 0.2 10^3/uL (0.0-0.1); BASOPHILS % (AUTO) 2 % (0-10); EOSINOPHILS # (AUTO) 0.3 10^3/uL (0.0-0.3); EOSINOPHILS % (AUTO) 4 % (0-10); HEMATOCRIT 54 % (40-54); HEMOGLOBIN 15.5 g/dL (13.3-17.7); LYMPHOCYTES # (AUTO) 0.8 10^3/uL (1.0-4.0); LYMPHOCYTES % (AUTO) 12 % (12-44); MEAN CORPUSCULAR HEMOGLOBIN 20 pg (25-34); MEAN CORPUSCULAR HGB CONC 29 g/dL (32-36); MEAN CORPUSCULAR VOLUME 69 fL (80-99); MEAN PLATELET VOLUME 9.7 fL (9.0-12.2); MONOCYTES # (AUTO) 0.5 10^3/uL (0.0-1.0); MONOCYTES % (AUTO) 6 % (0-12); NEUTROPHILS # (AUTO) 5.5 10^3/uL (1.8-7.8); NEUTROPHILS % (AUTO) 76 % (42-75); PLATELET COUNT 303 10^3/uL (130-400); WHITE BLOOD COUNT 7.3 10^3/uL (4.3-11.0)
[2022-11-18 09:56] LABS: ALBUMIN 4.1 GM/DL (3.2-4.5); CALCIUM 9.3 MG/DL (8.5-10.1); CREATININE SERUM 1.49 MG/DL (0.60-1.30); POTASSIUM 4.2 MMOL/L (3.6-5.0); TOTAL PROTEIN 6.6 GM/DL (6.4-8.2)
== END 2022-12-17 | disposition home or self-care (01) ==
LOC: ONC 09:07
PROVIDERS: ATTEND Internal Medicine Hematology & Oncology
DX: D45 Polycythemia vera (principal); E66.9 Obesity, unspecified; D50.9 Iron deficiency anemia, unspecified; I12.9 Hypertensive chronic kidney disease with stage 1 through stage 4 chronic kidney disease, or unspecified chronic kidney disease; N18.9 Chronic kidney disease, unspecified; D63.1 Anemia in chronic kidney disease; N28.1 Cyst of kidney, acquired; Z79.899 Other long term (current) drug therapy
CPT/HCPCS: 80053; 82728; 83540; 83550; 85025

== ENCOUNTER 2023-01-27 08:59 | Outpatient (RCR) | payer MEDICARE, OTHER ==
[2023-01-20 09:50] LABS: BASOPHILS # (AUTO) 0.2 10^3/uL (0.0-0.1); BASOPHILS % (AUTO) 3 % (0-10); EOSINOPHILS # (AUTO) 0.2 10^3/uL (0.0-0.3); EOSINOPHILS % (AUTO) 3 % (0-10); HEMATOCRIT 58 % (40-54); HEMOGLOBIN 15.6 g/dL (13.3-17.7); LYMPHOCYTES # (AUTO) 0.8 10^3/uL (1.0-4.0); LYMPHOCYTES % (AUTO) 12 % (12-44); MEAN CORPUSCULAR HEMOGLOBIN 19 pg (25-34); MEAN CORPUSCULAR HGB CONC 27 g/dL (32-36); MEAN CORPUSCULAR VOLUME 72 fL (80-99); MEAN PLATELET VOLUME 9.5 fL (9.0-12.2); MONOCYTES # (AUTO) 0.4 10^3/uL (0.0-1.0); MONOCYTES % (AUTO) 5 % (0-12); NEUTROPHILS # (AUTO) 5.3 10^3/uL (1.8-7.8); NEUTROPHILS % (AUTO) 77 % (42-75); PLATELET COUNT 296 10^3/uL (130-400); WHITE BLOOD COUNT 6.9 10^3/uL (4.3-11.0)
[2023-01-20 10:03] LABS: POTASSIUM 4.1 MMOL/L (3.6-5.0)
[2023-01-20 10:04] LABS: CALCIUM 9.1 MG/DL (8.5-10.1)
[2023-01-20 10:05] LABS: TOTAL PROTEIN 6.7 GM/DL (6.4-8.2)
[2023-01-20 10:07] LABS: BILIRUBIN,TOTAL 0.7 MG/DL (0.1-1.0)
[2023-01-20 10:09] LABS: CREATININE SERUM 1.26 MG/DL (0.60-1.30)
== END 2023-02-17 | disposition home or self-care (01) ==
LOC: ONC 08:59
PROVIDERS: ATTEND Internal Medicine Hematology & Oncology
DX: D45 Polycythemia vera (principal); E66.9 Obesity, unspecified; D50.9 Iron deficiency anemia, unspecified; I12.9 Hypertensive chronic kidney disease with stage 1 through stage 4 chronic kidney disease, or unspecified chronic kidney disease; N18.9 Chronic kidney disease, unspecified; D63.1 Anemia in chronic kidney disease; N28.1 Cyst of kidney, acquired; Z79.899 Other long term (current) drug therapy
CPT/HCPCS: 36415; 80053; 82728; 83540; 83550; 85025; 99214

== ENCOUNTER 2023-03-24 09:13 | Outpatient (RCR) | payer MEDICARE, OTHER | END 2023-04-19 | disposition home or self-care (01) | LOC: ONC 09:13 | PROVIDERS: ATTEND Internal Medicine Hematology & Oncology | DX: D45 Polycythemia vera (principal); N28.1 Cyst of kidney, acquired; E66.9 Obesity, unspecified; D50.9 Iron deficiency anemia, unspecified; I12.9 Hypertensive chronic kidney disease with stage 1 through stage 4 chronic kidney disease, or unspecified chronic kidney disease; N18.9 Chronic kidney disease, unspecified; D63.1 Anemia in chronic kidney disease; Z79.899 Other long term (current) drug therapy | CPT/HCPCS: 99214 ==

== ENCOUNTER → 2023-05-19 | Outpatient (RCR) | payer MEDICARE, OTHER ==
[2023-05-19 10:00] LABS: BASOPHILS # (AUTO) 0.2 10^3/uL (0.0-0.1); BASOPHILS % (AUTO) 2 % (0-10); EOSINOPHILS # (AUTO) 0.4 10^3/uL (0.0-0.3); EOSINOPHILS % (AUTO) 5 % (0-10); HEMATOCRIT 50 % (40-54); HEMOGLOBIN 13.7 g/dL (13.3-17.7); LYMPHOCYTES % (AUTO) 12 % (12-44); MEAN CORPUSCULAR HEMOGLOBIN 19 pg (25-34); MEAN CORPUSCULAR HGB CONC 28 g/dL (32-36); MEAN CORPUSCULAR VOLUME 69 fL (80-99); MEAN PLATELET VOLUME 9.2 fL (9.0-12.2); MONOCYTES # (AUTO) 0.4 10^3/uL (0.0-1.0); MONOCYTES % (AUTO) 5 % (0-12); NEUTROPHILS # (AUTO) 6.1 10^3/uL (1.8-7.8); NEUTROPHILS % (AUTO) 75 % (42-75); PLATELET COUNT 343 10^3/uL (130-400); WHITE BLOOD COUNT 8.1 10^3/uL (4.3-11.0)
[2023-05-19 10:12] LABS: ALBUMIN 3.8 GM/DL (3.2-4.5)
[2023-05-19 10:13] LABS: POTASSIUM 3.7 MMOL/L (3.6-5.0)
[2023-05-19 10:14] LABS: CALCIUM 8.6 MG/DL (8.5-10.1)
[2023-05-19 10:15] LABS: TOTAL PROTEIN 6.6 GM/DL (6.4-8.2)
[2023-05-19 10:17] LABS: BILIRUBIN,TOTAL 0.7 MG/DL (0.1-1.0)
[2023-05-19 10:19] LABS: CREATININE SERUM 1.32 MG/DL (0.60-1.30)
== END ==
LOC: ONC 09:36
PROVIDERS: ATTEND Internal Medicine Hematology & Oncology
DX: D45 Polycythemia vera (principal); E66.9 Obesity, unspecified; N28.1 Cyst of kidney, acquired; I12.9 Hypertensive chronic kidney disease with stage 1 through stage 4 chronic kidney disease, or unspecified chronic kidney disease; N18.9 Chronic kidney disease, unspecified; D63.1 Anemia in chronic kidney disease; D50.9 Iron deficiency anemia, unspecified
CPT/HCPCS: 36415; 80053; 82728; 83540; 83550; 85025